=== PATIENT | male | born 1975 | race African-American/Black ===

== ENCOUNTER 2016-04-26 00:41 | Emergency (ER) | payer OTHER ==
[~2016-04-26 00:41] MED LIST: LEVEMIR SQ; LIPI80TA PO; LISI-515 PO; NOVOLOGSS SQ
[2016-04-26 02:00] VITALS: BP 149/92; PULSE 114; RESP 19; TEMP 97.1; O2SAT 95
[2016-04-26 03:20] LABS: AMPHETAMINE, URINE NEG (NEG); BARBITURATES, URINE NEG (NEG); COCAINE, URINE NEG (NEG)
[2016-04-26 03:21] LABS: BASOPHIL # 0.1 TH/MM3 (0-0.2); EOSINOPHIL % 0.2 % (0.0-4.0); HEMATOCRIT 40.5 % (39.0-51.0); HEMO FLAGS DIFF FINAL; LYMPH % 27.8 % (9.0-44.0); LYMPHOCYTE # 2.2 TH/MM3 (1.0-4.8); MEAN CORPUSCULAR HEMOGLOBIN 27.7 PG (27.0-34.0); MEAN CORPUSCULAR HGB CONC 32.6 % (32.0-36.0); MONO % 6.7 % (0.0-8.0); NEUT % 64.3 % (16.0-70.0); PLATELET COUNT 408 TH/MM3 (150-450); RED BLOOD COUNT 4.76 MIL/MM3 (4.50-5.90); RED CELL DISTRIBUTION WIDTH 14.7 % (11.6-17.2); WHITE BLOOD COUNT 7.8 TH/MM3 (4.0-11.0)
[2016-04-26 03:30] LABS: ALKALINE PHOSPHATASE 96 U/L (45-117); TOTAL BILIRUBIN ADULT 0.5 MG/DL (0.2-1.0)
[2016-04-26 03:34] LABS: ALT (GPT) 38 U/L (12-78); ANION GAP 10 MEQ/L (5-15); AST (GOT) 39 U/L (15-37); BICARBONATE 23.3 MEQ/L (21.0-32.0); BLOOD UREA NITROGEN 11 MG/DL (7-18); CHLORIDE 106 MEQ/L (98-107); SODIUM (NA) 139 MEQ/L (136-145)
[2016-04-26 03:35] LABS: GLOMERULAR FILTRATION RATE 62 ML/MIN (>89)
[2016-04-26 03:36] LABS: POTASSIUM 4.6 MEQ/L (3.5-5.1)
--- NOTE | 2016-04-26 03:59 | PD ---
HPI Chief Complaint: Psychiatric Symptoms Time Seen by Provider: 03:56 Travel History International Travel<30 days: No Contact w/Intl Traveler<30days: No Traveled to known affect area: No History of Present Illness HPI 40-year-old black male presents to emergency department under Eckert act by PD. The patient had been drinking this evening. He admits suicidal statement. He had stated he was going to walk out in traffic. Patient denies any homicidal ideation. No toxic ingestion. The patient now after being here in the emergency department for several hours state that he did not truly mean those statements. He states that it was only because he had been drinking alcohol. He has no intention on hurting himself or hurting anyone. PFSH Past Medical History Blood Disorders: No Anxiety: Yes Depression: Yes Cancer: No Diabetes: No Diminished Hearing: No GERD: Yes Glaucoma: No Genitourinary: No Hypertension: Yes Immune Disorder: No Implanted Vascular Access Dvce: No Musculoskeletal: No Neurologic: No Psychiatric: Yes Reproductive: No Respiratory: No Immunizations Current: Yes Sleep Apnea: Yes Thyroid Disease: No Tetanus Vaccination: < 5 Years Past Surgical History Surgical History: No Previous Surgery Other Surgery: No Social History Alcohol Use: Yes Tobacco Use: Yes Substance Use: No Allergies-Medications (Allergen,Severity, Reaction): Coded Allergies: No Known Allergies (Verified , 03/23/16) Reported Meds & Prescriptions Reported Meds & Active Scripts Active Novolog Inj (Insulin Aspart) 100 Unit/Ml Inj 1 Units SQ ACHS SLIDING SCALE 30 Days Sliding Scale As Directed. Levemir Inj (Insulin Detemir) 1,000 unit/ 10 ML Vial 10 Units SQ BID 30 Days Lipitor (Atorvastatin Calcium) 80 Mg Tab 80 Mg PO HS Lisinopril 20 Mg Tab 20 Mg PO DAILY Review of Systems Except as stated in HPI: all other systems reviewed are Neg Psychiatric: No: Anxiety, Depression, Suicidal Ideations, Disorder of Thought, Mood Disorder, Substance Abuse, Homicidal Ideation Physical Exam Narrative GENERAL: Well-nourished, well-developed patient. SKIN: Warm and dry. HEAD: Normocephalic and atraumatic. EYES: No scleral icterus. No injection or drainage. ENT: No nasal drainage noted. Mucous membranes pink. Airway patent. NECK: Supple, trachea midline. Moves head freely without obvious discomfort. CARDIOVASCULAR: Regular rate and rhythm without murmurs, gallops, or rubs. RESPIRATORY: Breath sounds equal bilaterally. No accessory muscle use. GASTROINTESTINAL: Abdomen soft, non-tender, nondistended. EXTREMITIES: No cyanosis or edema. BACK: Nontender without obvious deformity. No CVA tenderness. NEURO: Patient is alert and oriented. no sensorimotor deficits. Nonfocal. Normal speech. PSYCH: No delusions. No auditory or visual hallucinations. Data Data Last Documented VS Vital Signs Date Time Temp Pulse Resp B/P Pulse Ox O2 Delivery O2 Flow Rate FiO2 04/26/16 02:00 97.1 114 19 149/92 95 Room Air Orders Complete Blood Count With Diff (04/26/16 02:26) Comprehensive Metabolic Panel (04/26/16 02:26) Drug Screen, Random Urine (04/26/16 02:26) Alcohol (Ethanol) (04/26/16 02:26) Psych Screen (04/26/16 02:26) Diet Regular Basic (04/26/16 Breakfast) Labs Laboratory Tests Test 04/26/16 03:00 White Blood Count 7.8 TH/MM3 Red Blood Count 4.76 MIL/MM3 Hemoglobin 13.2 GM/DL Hematocrit 40.5 % Mean Corpuscular Volume 85.0 FL Mean Corpuscular Hemoglobin 27.7 PG Mean Corpuscular Hemoglobin 32.6 % Concent Red Cell Distribution Width 14.7 % Platelet Count 408 TH/MM3 Mean Platelet Volume 7.0 FL Neutrophils (%) (Auto) 64.3 % Lymphocytes (%) (Auto) 27.8 % Monocytes (%) (Auto) 6.7 % Eosinophils (%) (Auto) 0.2 % Basophils (%) (Auto) 1.0 % Neutrophils # (Auto) 5.0 TH/MM3 Lymphocytes # (Auto) 2.2 TH/MM3 Monocytes # (Auto) 0.5 TH/MM3 Eosinophils # (Auto) 0.0 TH/MM3 Basophils # (Auto) 0.1 TH/MM3 CBC Comment DIFF FINAL Differential Comment Sodium Level 139 MEQ/L Potassium Level 4.6 MEQ/L Chloride Level 106 MEQ/L Carbon Dioxide Level 23.3 MEQ/L Anion Gap 10 MEQ/L Blood Urea Nitrogen 11 MG/DL Creatinine 1.52 MG/DL Estimat Glomerular Filtration 62 ML/MIN Rate Random Glucose 208 MG/DL Calcium Level 9.1 MG/DL Total Bilirubin 0.5 MG/DL Aspartate Amino Transf 39 U/L (AST/SGOT) Alanine Aminotransferase 38 U/L (ALT/SGPT) Alkaline Phosphatase 96 U/L Total Protein 7.9 GM/DL Albumin 3.9 GM/DL Urine Opiates Screen NEG Urine Barbiturates Screen NEG Urine Amphetamines Screen NEG Urine Benzodiazepines Screen NEG Urine Cocaine Screen NEG Urine Cannabinoids Screen NEG Ethyl Alcohol Level 148 MG/DL MDM Medical Decision Making Medical Screen Exam Complete: Yes Emergency Medical Condition: Yes Medical Record Reviewed: Yes Differential Diagnosis MDM: High Differential diagnoses: Schizophrenia, schizoaffective disorder, bipolar, anxiety, depression, adjustment reaction, mood disorder NOS, ODD, depressive disorder NOS, dementia, dementia with agitation, psychosis NOS, substance induced mood disorder, intermittent explosive disorder, Asperger syndrome, infection,electrolyte abnormality, malingering. Narrative Course Mental health screening discussed with the patient. Psychiatric screen ordered. The patient has been seen by the psych screener. I have also evaluated the patient. He is not suicidal or homicidal. He has verbally contracted for safety. The psych screener also agrees that the patient is safe to go home. The patient's Eckert act will be lifted and he will be sent home. He is not suicidal or homicidal. This is an alcohol induced mood disorder Diagnosis Primary Impression: Alcohol-induced mood disorder Patient Instructions: General Instructions Additional Instructions: Rest. Sleep. Follow-up with the recommendations of the psych screener. Return to the emergency department anytime is symptoms return or worsen. Follow-up with a medical doctor as needed. Med/Other Pt SpecificInfo: No Meds Exist/No RX given Disposition: 01 DISCHARGE HOME Condition: Stable Tr [place] Apr 26, 2016 03:59
== END 2016-04-26 04:56 | disposition home or self-care (01) ==
LOC: NEDAMB 00:41 → NEPJ 04:56
DX: F10.94 Alcohol use, unspecified with alcohol-induced mood disorder (principal); F41.8 Other specified anxiety disorders; I10 Essential (primary) hypertension; G47.30 Sleep apnea, unspecified; Z72.0 Tobacco use; Y90.6 Blood alcohol level of 120-199 mg/100 ml
CPT/HCPCS: 80053; 80307; 80320; 85025; 99283

== ENCOUNTER 2017-07-27 20:57 | Inpatient (IN) | payer SELFPAY ==
[~2017-07-27] VITALS: Ht 180.3 cm; Wt 125.0 kg
[2017-07-27 21:11] VITALS: BP 108/55; PULSE 106; RESP 16; TEMP 97.6; O2SAT 98
[2017-07-27 21:28] VITALS: BP 119/60; PULSE 107; RESP 18; O2SAT 96
[2017-07-27 21:31] VITALS: BP_SYST 109; BP_SYST 115; BP_DIAS 54; BP_DIAS 57
[2017-07-27 21:52] LABS: AUTOMATED NEUTROPHIL # 6.6 TH/MM3 (1.8-7.7); BASOPHIL # 0.2 TH/MM3 (0-0.2); BASOPHIL % 1.5 % (0.0-2.0); EOSINOPHIL % 0.4 % (0.0-4.0); HEMATOCRIT 42.2 % (39.0-51.0); LYMPH % 33.5 % (9.0-44.0); LYMPHOCYTE # 3.9 TH/MM3 (1.0-4.8); MEAN CELL VOLUME 82.8 FL (80.0-100.0); MEAN CORPUSCULAR HEMOGLOBIN 27.5 PG (27.0-34.0); MEAN CORPUSCULAR HGB CONC 33.2 % (32.0-36.0); MEAN PLATELET VOLUME 7.1 FL (7.0-11.0); MONO % 7.8 % (0.0-8.0); MONOCYTE # 0.9 TH/MM3 (0-0.9); NEUT % 56.8 % (16.0-70.0); PLATELET COUNT 310 TH/MM3 (150-450); RED BLOOD COUNT 5.09 MIL/MM3 (4.50-5.90); RED CELL DISTRIBUTION WIDTH 14.3 % (11.6-17.2); WHITE BLOOD COUNT 11.6 TH/MM3 (4.0-11.0)
[2017-07-27 22:11] LABS: ALT (GPT) 23 U/L (12-78)
[2017-07-27 22:15] LABS: ALKALINE PHOSPHATASE 95 U/L (45-117); TOTAL BILIRUBIN ADULT 0.4 MG/DL (0.2-1.0); TROPONIN I LESS THAN 0.02 NG/ML (0.02-0.05)
[2017-07-27 22:22] LABS: BILIRUBIN, URINE NEG (NEG); BLOOD, URINE NEG (NEG); GLUCOSE,URINE 300 mg/dL (NEG); KETONE, URINE NEG (NEG); MUCUS URINE FEW /lpf (OCC); NITRITE,URINE NEG (NEG); PH, URINE 5.5 (5.0-8.5); URINE COLOR LIGHT-YELLOW (YELLW/STRAW); URINE LEUKOCYTE ESTERASE NEG (NEG)
[2017-07-27 22:25] LABS: AST (GOT) 26 U/L (15-37); BLOOD UREA NITROGEN 19 MG/DL (7-18); CALCIUM 9.5 MG/DL (8.5-10.1); CHLORIDE 105 MEQ/L (98-107); CREATININE 2.56 MG/DL (0.60-1.30); GLOMERULAR FILTRATION RATE 34 ML/MIN (>89); GLUCOSE,RANDOM 199 MG/DL (74-106); SODIUM (NA) 137 MEQ/L (136-145)
[2017-07-27 23:00] VITALS: BP 97/52; PULSE 94; RESP 16; O2SAT 96
[2017-07-27] MEDS ORDERED: SODIUM CHLOR 0.9% 1000 ML INJ 1,000 ML IV ONE ×2 (23:00)
--- NOTE | 2017-07-27 23:25 | PD ---
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 He was 7 hours into his shift which he does every week when he went inside of the building to get more beer for the bar. Suddenly he said he felt like he hit a hot hot wall of air although he was going into an air conditioned building. He then tried to get into the walk-in cooler to get the beer and he thought the coolness would help his symptoms go away next he knew he was sitting down lying on top of the kegs inside the cooler and the rest of the staff came to find him and he was continuously becoming somnolent almost passing out denies having fallen and hitting his head he denies head pain he denies any long bone pain. Past medical history as he has a titanium plate in his knee and his left right forearm from a trauma that he had few years back. Denies diabetes denies hypertension is on no medications. No family history of young cardiac disease except his grandmother of a heart attack at the age of 70.. Patient denies having any chest pain no shortness of breath no head trauma throughout the day and came upon them suddenly very he denies standing for a long period of time in the sun he denies suddenly standing up from a sitting position and having the symptoms he said he had been leaning on the bar talking in a normal way there was no exertion prior to this syncopal event in the ER he feels better as of he feels a global tachycardic and tingling he says. He says sometimes his heart goes fast and he can tell when his fasting right now he says he feels best.. Later during HPI he reports and 2 weeks of right groin pain , girlfriend says she has felt swelling in right groin. other other associated Sx PFSH Past Medical History Blood Disorders: No Anxiety: Yes Depression: Yes Cancer: No Cardiovascular Problems: Yes (HTN) Diabetes: Yes Patient Takes Glucophage: No Diminished Hearing: No GERD: Yes Glaucoma: No Genitourinary: No Hypertension: Yes Immune Disorder: No Implanted Vascular Access Dvce: No Musculoskeletal: No Neurologic: No Psychiatric: Yes Reproductive: No Respiratory: Yes (Sleep Apnea) Immunizations Current: Yes Sleep Apnea: Yes Thyroid Disease: No Tetanus Vaccination: > 5 Years Influenza Vaccination: No Past Surgical History Surgical History: No Previous Surgery Other Surgery: No Social History Alcohol Use: Yes (occaisonally) Tobacco Use: Yes (black and milds) Substance Use: No Allergies-Medications (Allergen,Severity, Reaction): Coded Allergies: No Known Allergies (Verified , 03/23/16) Reported Meds & Prescriptions Reported Meds & Active Scripts Active Novolog Inj (Insulin Aspart) 100 Unit/Ml Inj 1 Units SQ ACHS SLIDING SCALE 30 Days Sliding Scale As Directed. Levemir Inj (Insulin Detemir) 1,000 unit/ 10 ML Vial 10 Units SQ BID 30 Days Lipitor (Atorvastatin Calcium) 80 Mg Tab 80 Mg PO HS Lisinopril 20 Mg Tab 20 Mg PO DAILY Review of Systems Except as stated in HPI: all other systems reviewed are Neg Neurologic: Positive: Syncope Physical Exam Narrative GENERAL: awake alert no signs or sepsis , non toxic appearing SKIN: Warm and dry. HEAD: Atraumatic. Normocephalic. EYES: Pupils equal and round. No scleral icterus. No injection or drainage. ENT: No nasal bleeding or discharge. Mucous membranes pink and moist. NECK: Trachea midline. No JVD. CARDIOVASCULAR: Regular rate and rhythm. RESPIRATORY: No accessory muscle use. Clear to auscultation. Breath sounds equal bilaterally. GASTROINTESTINAL: Abdomen soft, non-tender, nondistended. Hepatic and splenic margins not palpable. no hernia normal external genitalia MUSCULOSKELETAL: Extremities without clubbing, cyanosis, or edema. No obvious deformities. NEUROLOGICAL: Awake and alert. No obvious cranial nerve deficits. Motor grossly within normal limits. Five out of 5 muscle strength in the arms and legs. Normal speech. PSYCHIATRIC: Appropriate mood and affect; insight and judgment normal. Data Data Last Documented VS Vital Signs Date Time Temp Pulse Resp B/P (MAP) Pulse Ox O2 Delivery O2 Flow Rate FiO2 07/28/17 00:00 91 16 96/51 (66) 96 Room Air 07/27/17 21:11 97.6 Orders Orders Electrocardiogram (07/27/17 21:27) Complete Blood Count With Diff (07/27/17 21:27) Comprehensive Metabolic Panel (07/27/17 21:27) Iv Access Insert/Monitor (07/27/17 21:27) Troponin I (07/27/17 21:27) Urinalysis - C+S If Indicated (07/27/17 21:35) Drug Screen, Random Urine (07/27/17 21:44) Creatine Kinase (Cpk) (07/27/17 22:31) Ckmb (Isoenzyme) Profile (07/27/17 22:31) Sodium Chlor 0.9% 1000 Ml Inj (Ns 1000 M (07/27/17 23:00) Sodium Chlor 0.9% 1000 Ml Inj (Ns 1000 M (07/27/17 23:00) CKMB (07/27/17 21:30) CKMB% (07/27/17 21:30) Comprehensive Metabolic Panel (07/28/17 01:08) Admit Order (Ed Use Only) (07/28/17 02:56) Labs Laboratory Tests Test 07/27/17 21:30 07/27/17 21:40 07/28/17 01:10 White Blood Count 11.6 TH/MM3 Red Blood Count 5.09 MIL/MM3 Hemoglobin 14.0 GM/DL Hematocrit 42.2 % Mean Corpuscular Volume 82.8 FL Mean Corpuscular Hemoglobin 27.5 PG Mean Corpuscular Hemoglobin Concent 33.2 % Red Cell Distribution Width 14.3 % Platelet Count 310 TH/MM3 Mean Platelet Volume 7.1 FL Neutrophils (%) (Auto) 56.8 % Lymphocytes (%) (Auto) 33.5 % Monocytes (%) (Auto) 7.8 % Eosinophils (%) (Auto) 0.4 % Basophils (%) (Auto) 1.5 % Neutrophils # (Auto) 6.6 TH/MM3 Lymphocytes # (Auto) 3.9 TH/MM3 Monocytes # (Auto) 0.9 TH/MM3 Eosinophils # (Auto) 0.0 TH/MM3 Basophils # (Auto) 0.2 TH/MM3 CBC Comment DIFF FINAL Differential Comment Blood Urea Nitrogen 19 MG/DL 20 MG/DL Creatinine 2.56 MG/DL 2.58 MG/DL Random Glucose 199 MG/DL 209 MG/DL Total Protein 8.0 GM/DL 6.7 GM/DL Albumin 4.0 GM/DL 3.5 GM/DL Calcium Level 9.5 MG/DL 8.5 MG/DL Alkaline Phosphatase 95 U/L 74 U/L Aspartate Amino Transf (AST/SGOT) 26 U/L 20 U/L Alanine Aminotransferase (ALT/SGPT) 23 U/L 21 U/L Total Bilirubin 0.4 MG/DL 0.2 MG/DL Sodium Level 137 MEQ/L 142 MEQ/L Potassium Level 3.9 MEQ/L 4.1 MEQ/L Chloride Level 105 MEQ/L 106 MEQ/L Carbon Dioxide Level 23.0 MEQ/L 26.9 MEQ/L Anion Gap 9 MEQ/L 9 MEQ/L Estimat Glomerular Filtration Rate 34 ML/MIN 33 ML/MIN Total Creatine Kinase 303 U/L Creatine Kinase MB 2.6 NG/ML Troponin I LESS THAN 0.02 NG/ML Urine Color LIGHT-YELLOW Urine Turbidity CLEAR Urine pH 5.5 Urine Specific [place] 1.020 Urine Protein NEG mg/dL Urine Glucose (UA) 300 mg/dL Urine Ketones NEG mg/dL Urine Occult Blood NEG Urine Nitrite NEG Urine Bilirubin NEG Urine Urobilinogen LESS THAN 2.0 MG/DL Urine Leukocyte Esterase NEG Urine RBC 1 /hpf Urine WBC 1 /hpf Urine Mucus FEW /lpf Microscopic Urinalysis Comment CULT NOT INDICATED Urine Opiates Screen NEG Urine Barbiturates Screen NEG Urine Amphetamines Screen NEG Urine Benzodiazepines Screen NEG Urine Cocaine Screen NEG Urine Cannabinoids Screen NEG MDM Medical Decision Making Medical Screen Exam Complete: Yes Emergency Medical Condition: Yes Medical Record Reviewed: Yes Differential Diagnosis pt has possible syncope from dehydration syncope from hypoglycemia syncope from cardiogenic syncope from neurological possible other causes of vasovagal syncope. Narrative Course creatinine is elevated and after 2 liters of NS still elevated 2.5 creatinine and I want to admit for nephrology to consult for close renal management of possible chronic renal insufficiency not seem on prior labs. admit med/surg Diagnosis Primary Impression: Hypertension Qualified Codes: I10 - Essential (primary) hypertension Additional Impression: Acute renal failure Admitting Information Admitting Physician Requests: Observation Gunnar Hess MD Jul 27, 2017 23:25
[2017-07-28] VITALS (8 sets, daily range): BP systolic 96–136; BP diastolic 51–85; PULSE 86–104; RESP 16–20; TEMP 98–98.5; O2SAT 93–99
[2017-07-28 01:58] LABS: ALBUMIN 3.5 GM/DL (3.4-5.0); ALKALINE PHOSPHATASE 74 U/L (45-117); ALT (GPT) 21 U/L (12-78); AST (GOT) 20 U/L (15-37); BICARBONATE 26.9 MEQ/L (21.0-32.0); BLOOD UREA NITROGEN 20 MG/DL (7-18); CALCIUM 8.5 MG/DL (8.5-10.1); CHLORIDE 106 MEQ/L (98-107); CREATININE 2.58 MG/DL (0.60-1.30); GLOMERULAR FILTRATION RATE 33 ML/MIN (>89); GLUCOSE,RANDOM 209 MG/DL (74-106); SODIUM (NA) 142 MEQ/L (136-145); TOTAL BILIRUBIN ADULT 0.2 MG/DL (0.2-1.0); TOTAL PROTEIN 6.7 GM/DL (6.4-8.2)
[2017-07-28] MEDS ORDERED: ONDANSETRON HCL 4 MG/2 ML VIAL IVP PRN (03:00)
[2017-07-28] MEDS ORDERED: SODIUM CHLORIDE 0.9% FLUSH 10 ML FLUSH IV FLUSH PRN (03:00)
[2017-07-28] MEDS ORDERED: NALOXONE HCL 0.4 MG/ML AMP IV PUSH PRN (03:00)
[2017-07-28] MEDS ORDERED: ACETAMINOPHEN 325 MG TAB PO PRN (03:00)
[2017-07-28] MEDS ORDERED: GLUCAGON 1 MG/ML VIAL OTHER PRN (03:15)
[2017-07-28] MEDS ORDERED: DEXTROSE 50% IN WATER 50 ML VIAL(D50) IV PUSH PRN (03:15)
--- NOTE | 2017-07-28 05:05 | HHI.HP ---
HPI Service [facility] Primary Care Physician No Primary Care Physician Admission Diagnosis RENAL INSUFFICIENY new onset Diagnoses: Travel History International Travel<30 Days: No Contact w/Intl Traveler <30 Da: No Traveled to Known Affected Are: No History of Present Illness 41-year-old male with past medical history significant for hypertension, diabetes and hyperlipidemia presents the emergency department for evaluation of a syncopal event. 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 He went into the cooler at work and reports that he passed out. There were no witnesses. He denies any loss of bowel or bladder. He reports when he woke up he was on the floor of the cooler with a water bottle in his hand. Patient denies any chest pain or shortness of breath. No nausea/vomiting/diarrhea/abdominal pain. No lateralizing signs/symptoms. No fatigue or weakness. All symptoms have now resolved. Patient was found to have acute on chronic renal insufficiency that was resistant to hydration in the emergency department. Review of Systems Except as stated in HPI: all other systems reviewed are Neg Past Family Social History Past Medical History Hypertension Diabetes mellitus Hyperlipidemia Past Surgical History Right forearm surgery Left lower extremity surgery Reported Medications Reported Meds & Active Scripts Active Novolog Inj (Insulin Aspart) 100 Unit/Ml Inj 1 Units SQ ACHS SLIDING SCALE 30 Days Sliding Scale As Directed. Levemir Inj (Insulin Detemir) 1,000 unit/ 10 ML Vial 10 Units SQ BID 30 Days Lipitor (Atorvastatin Calcium) 80 Mg Tab 80 Mg PO HS Lisinopril 20 Mg Tab 20 Mg PO DAILY Allergies: Coded Allergies: No Known Allergies (Verified , 03/23/16) Family History Negative for DM/CAD Social History Smokes cigars daily. Occasional alcohol. Denies illicit drugs. Physical Exam Vital Signs Vital Signs Date Time Temp Pulse Resp B/P (MAP) Pulse Ox O2 Delivery O2 Flow Rate FiO2 07/28/17 04:54 98.0 86 18 120/70 (87) 97 07/28/17 04:45 07/28/17 04:00 87 16 118/59 (78) 96 Room Air 07/28/17 03:00 104 16 108/64 (79) 97 Room Air 07/28/17 00:00 91 16 96/51 (66) 96 Room Air 07/27/17 23:00 94 16 97/52 (67) 96 Room Air 07/27/17 21:31 97 115/57 (76) 110 114 109/54 (72) 07/27/17 21:28 107 18 119/60 (79) 96 Room Air 07/27/17 21:11 97.6 106 16 108/55 (72) 98 Physical Exam GENERAL: -[place] male lying in bed SKIN: No rashes, ecchymoses or lesions. Cool and dry. HEAD: Atraumatic. Normocephalic. No temporal or scalp tenderness. EYES: Pupils equal round and reactive. Extraocular motions intact. No scleral icterus. No injection or drainage. ENT: Nose without bleeding, purulent drainage or septal hematoma. Throat without erythema, tonsillar hypertrophy or exudate. Uvula midline. Airway patent. NECK: Trachea midline. No JVD or lymphadenopathy. Supple, nontender, no meningeal signs. CARDIOVASCULAR: Regular rate and rhythm without murmurs, gallops, or rubs. RESPIRATORY: Clear to auscultation. Breath sounds equal bilaterally. No wheezes , rales, or rhonchi. GASTROINTESTINAL: Abdomen soft, non-tender, nondistended. No hepato-splenomegaly , or palpable masses. No guarding. MUSCULOSKELETAL: Extremities without clubbing, cyanosis, or edema. No joint tenderness, effusion, or edema noted. No calf tenderness. NEUROLOGICAL: Awake and alert. Cranial nerves II through XII intact. Motor and sensory grossly within normal limits. Normal speech. Laboratory Laboratory Tests Test 07/27/17 21:30 07/27/17 21:40 07/28/17 01:10 White Blood Count 11.6 Red Blood Count 5.09 Hemoglobin 14.0 Hematocrit 42.2 Mean Corpuscular Volume 82.8 Mean Corpuscular Hemoglobin 27.5 Mean Corpuscular Hemoglobin Concent 33.2 Red Cell Distribution Width 14.3 Platelet Count 310 Mean Platelet Volume 7.1 Neutrophils (%) (Auto) 56.8 Lymphocytes (%) (Auto) 33.5 Monocytes (%) (Auto) 7.8 Eosinophils (%) (Auto) 0.4 Basophils (%) (Auto) 1.5 Neutrophils # (Auto) 6.6 Lymphocytes # (Auto) 3.9 Monocytes # (Auto) 0.9 Eosinophils # (Auto) 0.0 Basophils # (Auto) 0.2 CBC Comment DIFF FINAL Differential Comment Blood Urea Nitrogen 19 20 Creatinine 2.56 2.58 Random Glucose 199 209 Total Protein 8.0 6.7 Albumin 4.0 3.5 Calcium Level 9.5 8.5 Alkaline Phosphatase 95 74 Aspartate Amino Transf (AST/SGOT) 26 20 Alanine Aminotransferase (ALT/SGPT) 23 21 Total Bilirubin 0.4 0.2 Sodium Level 137 142 Potassium Level 3.9 4.1 Chloride Level 105 106 Carbon Dioxide Level 23.0 26.9 Anion Gap 9 9 Estimat Glomerular Filtration Rate 34 33 Total Creatine Kinase 303 Creatine Kinase MB 2.6 Troponin I LESS THAN 0.02 Urine Color LIGHT-YELLOW Urine Turbidity CLEAR Urine pH 5.5 Urine Specific [place] 1.020 Urine Protein NEG Urine Glucose (UA) 300 Urine Ketones NEG Urine Occult Blood NEG Urine Nitrite NEG Urine Bilirubin NEG Urine Urobilinogen LESS THAN 2.0 Urine Leukocyte Esterase NEG Urine RBC 1 Urine WBC 1 Urine Mucus FEW Microscopic Urinalysis Comment CULT NOT INDICATED Urine Opiates Screen NEG Urine Barbiturates Screen NEG Urine Amphetamines Screen NEG Urine Benzodiazepines Screen NEG Urine Cocaine Screen NEG Urine Cannabinoids Screen NEG Result Diagram: 07/27/17212907/28/17 0110 Caprini VTE Risk Assessment Caprini VTE Risk Assessment: No/Low Risk (score <= 1) Caprini Risk Assessment Model Point Value = 1 Point Value = 2 Point Value = 3 Point Value = 5 Age 41-60 Minor surgery BMI > 25 kg/m2 Swollen legs Varicose veins or History of unexplained or recurrent spontaneous Oral contraceptives or hormone replacement Sepsis (< 1 month) Serious lung disease, including pneumonia (< 1 month) Abnormal pulmonary function Acute myocardial infarction Congestive heart failure (< 1 month) History of inflammatory bowel disease Medical patient at bed rest Age 61-74 Arthroscopic surgery Major open surgery (> 45 min) Laparoscopic surgery (> 45 min) Malignancy Confined to bed (> 72 hours) Immobilizing plaster cast Central venous access Age >= 75 History of VTE Family history of VTE Factor V Leiden Prothrombin [id number] Lupus anticoagulant Anticardiolipin antibodies Elevated serum homocysteine Heparin-induced thrombocytopenia Other congenital or acquired thrombophilia Stroke (< 1 month) Elective arthroplasty Hip, pelvis, or leg fracture Acute spinal cord injury (< 1 month) Prophylaxis Regimen Total Risk Factor Score Risk Level Prophylaxis Regimen 0-1 Low Early ambulation 2 Moderate Order ONE of the following: *Sequential Compression Device (SCD) *Heparin 5000 units SQ BID 3-4 Higher Order ONE of the following medications: *Heparin 5000 units SQ TID *Enoxaparin/Lovenox 40 mg SQ daily (WT < 150 kg, CrCl > 30 mL/min) *Enoxaparin/Lovenox 30 mg SQ daily (WT < 150 kg, CrCl > 10-29 mL/min) *Enoxaparin/Lovenox 30 mg SQ BID (WT < 150 kg, CrCl > 30 mL/min) AND/OR *Sequential Compression Device (SCD) 5 or more Highest Order ONE of the following medications: *Heparin 5000 units SQ TID (Preferred with Epidurals) *Enoxaparin/Lovenox 40 mg SQ daily (WT < 150 kg, CrCl > 30 mL/min) *Enoxaparin/Lovenox 30 mg SQ daily (WT < 150 kg, CrCl > 10-29 mL/min) *Enoxaparin/Lovenox 30 mg SQ BID (WT < 150 kg, CrCl > 30 mL/min) AND *Sequential Compression Device (SCD) Assessment and Plan Assessment and Plan Assessment/plan: 1. Acute on chronic renal insufficiency Creatinine 2.58, baseline 1.5 from 1 year ago IV fluid hydration Renal ultrasound pending Nephrology consulted, appreciate recommendations 2. Diabetes mellitus Continue home Levemir Monitor blood glucose Sliding-scale insulin 3. Hypertension/hyperlipidemia Continue home medications FEN: Renal diet Electrolytes: monitor and replete prn NS at 125 cc/hr Physician Certification 2 Midnight Certification Type: Admission for Inpatient Services Order for Inpatient Services The services are ordered in accordance with Medicare regulations or non- Medicare payer requirements, as applicable. In the case of services not specified as inpatient-only, they are appropriately provided as inpatient services in accordance with the 2-midnight benchmark. Estimated LOS (days): 2 2 days is the estimated time the patient will need to remain in the hospital, assuming treatment plan goals are met and no additional complications. Post-Hospital Plan: Not yet determined Liane aMrtino MD Jul 28, 2017 05:05
[2017-07-28] MEDS: SODIUM CHLOR 0.9% 1000 ML INJ 1,000 ML IV SCH ×3 (05:06→21:49)
[2017-07-28] MEDS: INSULIN ASPART SUPPLEMENTAL SCALE SQ SCH ×4 (08:00→21:50)
--- NOTE | 2017-07-28 08:56 | RADRPT ---
EXAM DATE/TIME: 07/28/2017 08:12 [facility] COMPARISON: No previous studies available for comparison. INDICATIONS : Increased BUN/Creatnine. MEDICAL HISTORY : Hypertension. Gastroesophageal reflux disease. Sleep apnea. Diabetes. Depression. Anxiety. SURGICAL HISTORY : Abhijit in right arm. Hardware in left callaway. ENCOUNTER: Initial ACUITY: 1 day PAIN SCORE: 0/10 LOCATION: Bilateral flank MEASUREMENTS: RIGHT KIDNEY: 10.3 x 4.7 x 5.0 cm LEFT KIDNEY: 11.1 x 4.8 x 6.4 cm FINDINGS: RIGHT KIDNEY: Renal cortex is normal in thickness and echotexture. No hydronephrosis, stone, or mass. LEFT KIDNEY: Renal cortex is normal in thickness and echotexture. No hydronephrosis, stone, or mass. BLADDER: Within normal limits given the degree of distension. CONCLUSION: Normal examination. Marcellus Childers MD on July 28, 2017 at 8:53 Board Certified Radiologist. This report was verified electronically.
[2017-07-28] MEDS: INSULIN DETEMIR 100 UNITS/ML VIAL SQ SCH ×2 (09:00→21:49)
[2017-07-28] MEDS: SODIUM CHLORIDE 0.9% FLUSH 10 ML FLUSH IV FLUSH SCH ×2 (09:00→21:49)
[2017-07-28] MEDS: LISINOPRIL 20 MG TAB PO SCH (09:55)
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
[2017-07-28 12:10] LABS: BICARBONATE 25.1 MEQ/L (21.0-32.0); CALCIUM 8.9 MG/DL (8.5-10.1); CREATININE 1.74 MG/DL (0.60-1.30)
--- NOTE | 2017-07-28 13:41 | EKG ---
Date Performed: 07/27/2017 Time Performed: 21:31:01 PTAGE: 41 years EKG: SINUS TACHYCARDIA MARKED LEFT AXIS DEVIATION PATTERN CONSISTENT WITH PULMONARY DISEASE ABNO RMAL ECG PREVIOUS TRACING 03/23/16 Since the previous tracing, no significant change noted DOCTOR: Jarred Stover Interpretating Date/Time 07/28/2017 13:41:08
--- NOTE | 2017-07-28 16:17 | HHI.PR ---
Addendum to Inpatient Note Addendum Reason: Additional Documentation Additional Information The pt was resting comfortably. He was seen by nephrology who indicated acute renal failure was s/t dehydration. Renal US unremarkable. Continue IVFs. Follow up with nephrology. Follow BMP and avoid nephrotoxins. Román Leo DO Jul 28, 2017 16:17
[2017-07-28] MEDS ORDERED: ATORVASTATIN 80 MG TAB PO SCH (21:00)
[2017-07-29 00:04] VITALS: BP 141/75; PULSE 81; RESP 18; TEMP 98.2; O2SAT 98
[2017-07-29] MEDS: SODIUM CHLOR 0.9% 1000 ML INJ 1,000 ML IV SCH ×2 (03:23→11:23)
[2017-07-29 06:16] LABS: AUTOMATED NEUTROPHIL # 2.7 TH/MM3 (1.8-7.7); BASOPHIL % 0.3 % (0.0-2.0); EOSINOPHIL # 0.1 TH/MM3 (0-0.4); LYMPH % 51.4 % (9.0-44.0); LYMPHOCYTE # 3.5 TH/MM3 (1.0-4.8); MEAN CELL VOLUME 82.8 FL (80.0-100.0); MEAN CORPUSCULAR HEMOGLOBIN 27.6 PG (27.0-34.0); MEAN CORPUSCULAR HGB CONC 33.4 % (32.0-36.0); MEAN PLATELET VOLUME 7.3 FL (7.0-11.0); MONO % 7.3 % (0.0-8.0); MONOCYTE # 0.5 TH/MM3 (0-0.9); PLATELET COUNT 265 TH/MM3 (150-450); RED BLOOD COUNT 4.34 MIL/MM3 (4.50-5.90); RED CELL DISTRIBUTION WIDTH 14.6 % (11.6-17.2); WHITE BLOOD COUNT 6.8 TH/MM3 (4.0-11.0)
[2017-07-29 06:38] LABS: BICARBONATE 26.1 MEQ/L (21.0-32.0); CALCIUM 8.8 MG/DL (8.5-10.1); CREATININE 1.35 MG/DL (0.60-1.30)
[2017-07-29 07:31] VITALS: BP 129/70; PULSE 64; RESP 17; TEMP 97.4; O2SAT 97
[2017-07-29] MEDS: INSULIN ASPART SUPPLEMENTAL SCALE SQ SCH ×2 (08:00→12:00)
[2017-07-29] MEDS: SODIUM CHLORIDE 0.9% FLUSH 10 ML FLUSH IV FLUSH SCH (09:00)
[2017-07-29] MEDS: INSULIN DETEMIR 100 UNITS/ML VIAL SQ SCH (09:00)
[2017-07-29] MEDS: LISINOPRIL 20 MG TAB PO SCH (10:20)
[2017-07-29] MEDS ORDERED: LISI-515 PO (11:12)
[2017-07-29] MEDS ORDERED: ATOR80TA45 PO (11:12)
[2017-07-29] MEDS ORDERED: LEVEMIR SQ (11:12)
[2017-07-29] MEDS ORDERED: [UNRECOGNIZED DRUG - CODE] (11:14)
[2017-07-29] MEDS ORDERED: GLUCKIT15 (11:14)
[2017-07-29] MEDS ORDERED: GLUCTES12 (11:14)
[2017-07-29] MEDS ORDERED: INSU31MI31 (11:14)
--- NOTE | 2017-07-29 11:20 | HHI.PR ---
Subjective Remarks Follow-up acute on chronic kidney disease/diabetes type 2 July 29, 2017-patient seen and examined; renal indices improving. Patient denies any syncopal episode. Blood glucose better controlled. Tolerated p.o. without any competition nausea and vomiting. Looking for discharge home. Objective Vitals Vital Signs Date Time Temp Pulse Resp B/P (MAP) Pulse Ox O2 Delivery O2 Flow Rate FiO2 07/29/17 07:31 97.4 64 17 129/70 (89) 97 07/29/17 00:04 98.2 81 18 141/75 (97) 98 07/28/17 20:00 98.1 87 17 136/84 (101) 98 07/28/17 16:00 98.5 96 20 113/63 (80) 99 07/28/17 13:30 98.1 90 20 132/84 (100) 99 I/O 07/28/17 07/28/17 07/28/17 07/29/17 07/29/17 07/29/17 07:00 15:00 23:00 07:00 15:00 23:00 Intake Total 2000 ml 720 ml 520 ml Balance 2000 ml 720 ml 520 ml Intake Oral 720 ml 520 ml IV Total 2000 ml # Voids 2 5 # Bowel Movements 0 Result Diagram: 07/29/17 0454 07/29/17 0454 Imaging Last Impressions Renal Ultrasound 07/28/17 0000 Signed Impressions: Service Date/Time: Friday, July 28, 2017 08:12 - CONCLUSION: Normal examination. Marcellus Childers MD Objective Remarks GENERAL: NAD SKIN: Warm and dry. HEAD: Normocephalic. EYES: No scleral icterus. No injection or drainage. NECK: Supple, trachea midline. No JVD or lymphadenopathy. CARDIOVASCULAR: Regular rate and rhythm without murmurs, gallops, or rubs. RESPIRATORY: Breath sounds equal bilaterally. No accessory muscle use. GASTROINTESTINAL: Abdomen soft, non-tender, nondistended. MUSCULOSKELETAL: No cyanosis, or edema. BACK: Nontender without obvious deformity. No CVA tenderness. A/P Problem List: (1) Acute renal failure ICD Code: N17.9 - Acute kidney failure, unspecified (2) Diabetes mellitus ICD Code: E11.9 - Type 2 diabetes mellitus without complications (3) Hypertension ICD Code: I10 - Essential (primary) hypertension Assessment and Plan 41-year-old man with 1. Acute on chronic renal insufficiency secondary to dehydration Improved with IV fluid hydration Renal ultrasound without any abnormality Nephrology consulted, appreciate recommendations 2. Diabetes mellitus Blood glucose improving Continue home Levemir Monitor blood glucose Sliding-scale insulin 3. Hypertension/hyperlipidemia Continue home medications Discharge Planning Discharge patient to home Condition on discharge: Improved [place] Diet as tolerated Ad Shandra activity Rx written:see EMR Follow-up with primary care physician in 1 week Follow with nephrology as needed Problem Qualifiers (1) Acute renal failure: Qualified Codes: N17.9 - Acute kidney failure, unspecified (2) Diabetes mellitus: Qualified Codes: E11.9 - Type 2 diabetes mellitus without complications (3) Hypertension: Qualified Codes: I10 - Essential (primary) hypertension Juan Anguiano MD Jul 29, 2017 11:20
[2017-07-29 12:00] VITALS: BP 137/78; PULSE 82; RESP 18; TEMP 97.8; O2SAT 98
== END 2017-07-29 12:35 | disposition home or self-care (01) | DRG 684 ==
LOC: NEPE 20:57 → NEDA 07-28 02:57 → OBSVTOIN 07-28 03:45 → NEPGCP 07-28 05:27 → N06B 07-28 12:59
PROVIDERS: ADMIT Hospitalist; ATTEND Hospitalist
DX: N17.9 Acute kidney failure, unspecified (principal); E11.22 Type 2 diabetes mellitus with diabetic chronic kidney disease; R55 Syncope and collapse; I12.9 Hypertensive chronic kidney disease with stage 1 through stage 4 chronic kidney disease, or unspecified chronic kidney disease; N18.9 Chronic kidney disease, unspecified; F17.290 Nicotine dependence, other tobacco product, uncomplicated; Z82.49 Family history of ischemic heart disease and other diseases of the circulatory system; E78.5 Hyperlipidemia, unspecified; Z79.4 Long term (current) use of insulin; E86.0 Dehydration; E11.65 Type 2 diabetes mellitus with hyperglycemia; K21.9 Gastro-esophageal reflux disease without esophagitis; G47.30 Sleep apnea, unspecified
CPT/HCPCS: 76775; 80048; 80053; 80307; 81001; 82550; 82552; 82948; 84484; 85025; 93005; 96360; G8987-GP; G8988-GP; J1815; J7030

== ENCOUNTER 2017-09-15 14:53 | Emergency (ER) | payer SELFPAY ==
[~2017-09-15] VITALS: Ht 180.3 cm; Wt 124.0 kg
[~2017-09-15 14:53] MED LIST changes: +ATOR80TA45 PO; +GLUCKIT15; +GLUCTES12; +INSU31MI31; -LIPI80TA PO; +[UNRECOGNIZED DRUG - CODE]
[2017-09-15 14:57] VITALS: BP 155/103; PULSE 112; RESP 18; TEMP 98.7; O2SAT 99
[2017-09-15] MEDS ORDERED: LEVEMIR SQ (15:07)
[2017-09-15] MEDS ORDERED: NOVONP2 SQ (15:07)
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
--- NOTE | 2017-09-15 15:47 | RADRPT ---
EXAM DATE: 09/15/2017 3:40 PM EDT AGE/SEX: 42 years / Male INDICATIONS: Posterior chest pain post fall today CLINICAL DATA: This is the patient's initial encounter. Patient reports that signs and symptoms have been present for 1 day and indicates a pain score of 5/10. MEDICAL/SURGICAL HISTORY: None. None. COMPARISON: No prior exams available for comparison. FINDINGS: A single AP view of the chest demonstrates the lungs to be symmetrically aerated without evidence of mass, infiltrate or effusion. The cardiomediastinal contours are unremarkable. Degenerative changes are noted throughout the thoracic spine. CONCLUSION: Negative examination. Electronically signed by: Reji Padilla MD 09/15/2017 3:45 PM EDT
--- NOTE | 2017-09-15 15:53 | RADRPT ---
EXAM DATE: 09/15/2017 3:48 PM EDT AGE/SEX: 42 years / Male INDICATIONS: Right posterior elbow pain post fall today CLINICAL DATA: This is the patient's initial encounter. Patient reports that signs and symptoms have been present for 1 day and indicates a pain score of 10/10. MEDICAL/SURGICAL HISTORY: . Prior fractures to right elbow . ORIF right elbow COMPARISON: No prior exams available for comparison. FINDINGS: Extensive degenerative changes are present about the elbow. Fracture is not appreciated. Scattered in tra-articular loose bodies are evident. No joint effusion CONCLUSION: Extensive degenerative changes. I do not see a joint effusion or evidence for an acute fracture. Subt le acute fracture would be difficult to exclude. Electronically signed by: Jose Cagle MD 09/15/2017 3:52 PM EDT
--- NOTE | 2017-09-15 16:28 | RADRPT ---
EXAM DATE: 09/15/2017 4:25 PM EDT AGE/SEX: 42 years / Male INDICATIONS: Trauma; fall. CLINICAL DATA: This is the patient's initial encounter. Patient reports that signs and symptoms have been present for 1 day and indicates a pain score of 4/10. MEDICAL/SURGICAL HISTORY: Cardiovascular disease. Hypertension. None. RADIATION DOSE: 56.35 CTDI (mGy) COMPARISON: [facility] – [place], CT BRAIN W/O CONTRAST, 03/23/2016. . TECHNIQUE: CT of the head without contrast. Using automated exposure control and adjustment of the mA and/or kV according to patient size, radiation dose was kept as low as reasonably achievable to ob tain optimal diagnostic quality images. FINDINGS: Cerebrum: The ventricles are normal for age. No evidence of midline shift, mass lesion, hemorrhage or acute infarction. No extraaxial fluid collections are seen. Posterior Fossa: The cerebellum and brainstem are intact. The 4th ventricle is midline. The cerebe llopontine angle is unremarkable. Extracranial: The visualized portion of the orbits is intact. Skull: The calvaria is intact. No evidence of skull fracture. CONCLUSION: 1. Negative for acute process. Electronically signed by: Jose Cagle MD 09/15/2017 4:27 PM EDT
--- NOTE | 2017-09-15 16:32 | RADRPT ---
EXAM DATE: 09/15/2017 4:27 PM EDT AGE/SEX: 42 years / Male INDICATIONS: Trauma; fall. CLINICAL DATA: This is the patient's initial encounter. Patient reports that signs and symptoms have been present for 1 day and indicates a pain score of 5/10. MEDICAL/SURGICAL HISTORY: Cardiovascular disease. Hypertension. None. RADIATION DOSE: 21.05 CTDI (mGy) COMPARISON: No prior exams available for comparison. TECHNIQUE: Contiguous axial images were obtained using helical multirow detector technique. The vol umetric data was post-processed with multiplanar reconstruction in oblique axial, sagittal, and coron al planes. Using automated exposure control and adjustment of the mA and/or kV according to patient s ize, radiation dose was kept as low as reasonably achievable to obtain optimal diagnostic quality juanito ges. FINDINGS: Vertebrae: Normal vertebral body height. Anterior osteophyte findings are seen at C5-C6 and C6-C7. Alignment: Normal. No subluxation. C2-3: The bony spinal canal is normal in size. No evidence of disc bulge or herniation. The neural foramina are bilaterally patent. C3-4: The bony spinal canal is normal in size. No evidence of disc bulge or herniation. The neural foramina are bilaterally patent. C4-5: The bony spinal canal is normal in size. No evidence of disc bulge or herniation. The neural foramina are bilaterally patent. C5-6: The bony spinal canal is normal in size. No evidence of disc bulge or herniation. Large ante rior osteophytes are evident The neural foramina are bilaterally patent. C6-7: The bony spinal canal is normal in size. No evidence of disc bulge or herniation. Large ante rior osteophytes are evident. The neural foramina are bilaterally patent. C7-T1: The bony spinal canal is normal in size. No evidence of disc bulge or herniation. The neura l foramina are bilaterally patent. CONCLUSION: 1. Large anterior osteophytes. 2. Controlled flexion-extension films would be of benefit to exclude instability. Electronically signed by: Jose Cagle MD 09/15/2017 4:30 PM EDT
[2017-09-15] MEDS ORDERED: ORPHENADRINE INJ 60 MG/2 ML AMP IM ONE (16:45)
[2017-09-15] MEDS ORDERED: KETOROLAC TROMETHAMINE 60 MG/2 ML (IM) VIAL IM ONE (16:45)
--- NOTE | 2017-09-15 17:17 | RADRPT ---
EXAM DATE: 09/15/2017 5:11 PM EDT AGE/SEX: 42 years / Male INDICATIONS: Neck pain and headache after fall. CLINICAL DATA: This is the patient's initial encounter. Patient reports that signs and symptoms have been present for 1 day and indicates a pain score of 4/10. MEDICAL/SURGICAL HISTORY: None. None. COMPARISON: No prior exams available for comparison. FINDINGS: Very minimal subluxation at C3-C4 felt to be degenerative rather than traumatic. No other abnormal mo tion segments are noted. CONCLUSION: Minimal subluxation at C3-C4 as above. Electronically signed by: Jose Cagle MD 09/15/2017 5:16 PM EDT
[2017-09-15] MEDS ORDERED: ROBA500T PO (17:27)
[2017-09-15 17:30] VITALS: BP 148/83; TEMP 97.8
== END 2017-09-15 17:30 | disposition home or self-care (01) ==
LOC: NEPC 14:53
DX: S16.1XXA Strain of muscle, fascia and tendon at neck level, initial encounter (principal); S50.01XA Contusion of right elbow, initial encounter; S09.90XA Unspecified injury of head, initial encounter; T23.262A Burn of second degree of back of left hand, initial encounter; E11.9 Type 2 diabetes mellitus without complications; E78.00 Pure hypercholesterolemia, unspecified; I10 Essential (primary) hypertension; W10.9XXA Fall (on) (from) unspecified stairs and steps, initial encounter; X12.XXXA Contact with other hot fluids, initial encounter; Z72.0 Tobacco use; Z79.4 Long term (current) use of insulin
CPT/HCPCS: 70450; 71045; 72040; 72125; 73080; 96372; 99284; J1885; J2360

== ENCOUNTER 2018-03-09 17:10 | Observation (INO) ==
[2018-03-09] MEDS ORDERED: Sod Chloride 0.9% Inj 1,000 ML IV.SIG SCH ×2 (20:00→21:45)
--- NOTE | 2018-03-09 20:18 | XR ---
EXAM DATE: 03/09/2018 8:13 PM EST AGE/SEX: 42 years / Male INDICATIONS: Cough. Congestion. CLINICAL DATA: This is the patient's subsequent encounter. Patient reports that signs and symptoms h ave been present for 1 day and indicates a pain score of 5/10. MEDICAL/SURGICAL HISTORY: None. None. COMPARISON: [facility] – [place], CHEST SINGLE AP, 09/15/2017. . FINDINGS: A single AP view of the chest demonstrates the lungs to be symmetrically aerated without evidence of mass, infiltrate or effusion. The cardiomediastinal contours are unremarkable. Osseous structures a re intact. CONCLUSION: No evidence of acute cardiopulmonary disease. Electronically signed by: Emeka Lawton MD 03/09/2018 8:17 PM EST
[2018-03-09 20:24] LABS: Baso # (Auto) 0.1 th/mm3 (0.0-0.2); Baso % (Auto) 0.8 % (0.0-2.0); Eos # (Auto) 0.1 th/mm3 (0.0-0.4); Eos % (Auto) 1.5 % (0.0-4.0); Hematocrit 42.7 % (39.0-51.0); Lymph # (Auto) 3.8 th/mm3 (1.0-4.8); Lymph % (Auto) 39.9 % (9.0-44.0); Mean Corpuscular HGB Conc 32.7 % (32.0-36.0); Mean Corpuscular Hemoglobin 27.5 pg (27.0-34.0); Mean Platelet Volume 8.5 fL (7.0-11.0); Mono # (Auto) 0.6 th/mm3 (0.0-0.9); Mono % (Auto) 6.6 % (0.0-8.0); Neut # (Auto) 4.9 th/mm3 (1.8-7.7); Neut % (Auto) 51.2 % (16.0-70.0); Platelet Count 258 th/mm3 (150-450); Red Blood Count 5.09 mil/mm3 (4.50-5.90); Red Cell Distribution Width 13.7 % (11.6-17.2); White Blood Count 9.6 th/mm3 (4.0-11.0)
--- NOTE | 2018-03-09 20:27 | CT ---
EXAM DATE: 03/09/2018 8:23 PM EST AGE/SEX: 42 years / Male INDICATIONS: Blurred vision 2 weeks CLINICAL DATA: This is the patient's initial encounter. Patient reports that signs and symptoms have been present for 2 weeks and indicates a pain score of 0/10. MEDICAL/SURGICAL HISTORY: Diabetes. Hypertension. None. RADIATION DOSE: 56.45 CTDI (mGy) COMPARISON: [facility] – [place]RAIN [place], 09/15/2017. . TECHNIQUE: CT of the head without contrast. Using automated exposure control and adjustment of the mA and/or kV according to patient size, radiation dose was kept as low as reasonably achievable to ob tain optimal diagnostic quality images. DICOM format image data is available electronically for revi ew and comparison. FINDINGS: Cerebrum: The ventricles are normal for age. No evidence of midline shift, mass lesion, hemorrhage or acute infarction. No extraaxial fluid collections are seen. Posterior Fossa: The cerebellum and brainstem are intact. The 4th ventricle is midline. The cerebe llopontine angle is unremarkable. Extracranial: The visualized portion of the orbits is intact. Skull: The calvaria is intact. No evidence of skull fracture. CONCLUSION: No acute intracranial abnormality. . Electronically signed by: Emeka Lawton MD 03/09/2018 8:26 PM EST
[2018-03-09 20:31] LABS: Bilirubin,Urine Negative (Negative); Clarity,Urine Clear (Clear); Color,Urine Straw (Yellw/Straw); Glucose,Urine (UA) 500 or Greater mg/dL (Negative); Leukocyte Esterase,Urine Negative (Negative); Nitrite,Urine Negative (Negative); Specific Gravity,Urine 1.032 (1.002-1.035)
[2018-03-09 20:52] LABS: Alanine Aminotransferase 38 U/L (12-78); Albumin 4.1 g/dL (3.4-5.0); Alkaline Phosphatase 182 U/L (45-117); Anion Gap 8 meq/L (5-15); Aspartate Aminotransferase 29 U/L (15-37); Beta Hydroxybutyric Acid 0.84 mmol/L (0.00-0.39); Blood Urea Nitrogen 17 mg/dL (7-18); Calcium 8.9 mg/dL (8.5-10.1); Chloride 93 meq/L (98-107); Glomerular Filtration Rate 56 mL/min (>89); Magnesium 2.1 mg/dL (1.5-2.5); Sodium 127 meq/L (136-145); Total Protein 7.8 g/dL (6.4-8.2)
[2018-03-09 20:53] LABS: Potassium 4.4 meq/L (3.5-5.1)
[2018-03-09 20:54] LABS: Glucose,Random 556 mg/dL (74-106)
[2018-03-09 21:04] LABS: VBG Base Excess -0.6 mmol/L (-2-2); VBG Blood Gas Oxygen Content 9.2 Vol % (9.0-17.0); VBG PCO2 45 mmHG (44-48); VBG PH 7.35 (7.360-7.400)
[2018-03-09 21:05] LABS: VBG PO2 28 mmHG (35-40)
--- NOTE | 2018-03-09 21:08 | ED ---
HPI General Chief complaint: Eye Problems Stated complaint: blurry vision Time Seen by Provider: 03/09/18 19:38 Source: patient and family Mode of arrival: ambulatory Limitations: no limitations History of Present Illness HPI narrative: Mr Stevenson is a 42 year old male who presents to the ED for evaluation of blurred vision and fatigue. The patient was diagnosed with DMT2 2 years ago and has been taking lisinopril, atorvastatin, and Novalin. The patient states that for approximately 1 week he has had increasing blurred vision and fatigue. When he has checked his glucose this week, the glucometer has read high. He states he usually only checks his glucose twice per week. The patient also complains of tightness in his chest and stiffness in his arms. He denies fever, nausea, vomiting, abdominal pain, diarrhea, diaphoresis, or SOB. The patient's PMH is significant for DMT2, HTN, sleep apnea, hypercholesterolemia and an irregular heart beat. He smokes 3 black and mild cigars per day, and denies alcohol or drug use. Currently denies any pain. Has not seen his PCP or any other provider for this. No urinary or BM issues. Denies chest pain. Related Data Home Medications Medication Instructions Recorded Confirmed atorvastatin 80 mg PO DAILY 03/09/18 03/09/18 lisinopril 20 mg PO DAILY 03/09/18 03/09/18 Previous Rx's Medication Instructions Recorded insulin asp prt-insulin aspart 12 unit SUBCUT BIDAC #1 vial 03/10/18 [Novolog Mix 70-30 U-100 Insuln] metformin 1,000 mg PO QPM #30 tab 03/10/18 Allergies Allergy/AdvReac Type Severity Reaction Status Date / Time No Known Allergies Allergy Verified 03/09/18 17:19 Review of Systems ROS: all other systems reviewed are negative [facility] Medical History Medical History Diabetes (Acute) Hyperlipidemia (Acute) Hypertension (Acute) Surgical History Surgical History History of orthopedic surgery (Acute) History of surgery on arm (Acute) Social History Social History Substance History: No History of Abuse Second Hand Smoke Exposure: Yes Smoking Status: Light tobacco smoker Tobacco Type: Cigars How Often Do You Have a Drink Containing Alcohol: Never Recent Travel in [facility] within the Last 8 Weeks: No Recent Out of Country Travel within the Last 8 Weeks: No Immunization History Tetanus Immunization: >5 Years Exam Narrative Exam Narrative: GENERAL: Patient is a well developed well nourished male in [facility]. SKIN: Warm and dry. HEAD: Atraumatic. Normocephalic. EYES: Pupils equal and round and reactive to light and accomodation 4 mms reactive to light and acomodation. No scleral icterus. No injection or drainage. Ophthalmic exam attempted but the patient would not keep eyes fixed in one place for exam to occur. EOM intact. ENT: No nasal bleeding or discharge. Mucous membranes pink and moist. Tongue is midline. no uvula deviation. NECK: Trachea midline. No JVD. CARDIOVASCULAR: Regular rate and rhythm. No murmurs rubs or gallops. RESPIRATORY: No accessory muscle use. Clear to auscultation. Breath sounds equal bilaterally. GASTROINTESTINAL: Abdomen soft, non-tender, nondistended. Hepatic and splenic margins not palpable. MUSCULOSKELETAL: Extremities without clubbing, cyanosis, or edema. No obvious deformities. Full ROM in the upper and lower extremities bilaterally. 2+ pulses in the upper and lower extremities bilaterally. NEUROLOGICAL: Awake and alert. No obvious cranial nerve deficits. Motor grossly within normal limits. Five out of 5 muscle strength in the arms and legs. Normal speech. PSYCHIATRIC: Appropriate mood and affect; insight and judgment normal. Course Initial Documented Vital Signs Temperature 98.9 F 03/09/18 17:16 Pulse Rate 91 H 03/09/18 17:16 Respiratory Rate 20 03/09/18 17:16 Blood Pressure 171/79 H 03/09/18 17:16 Pulse Oximetry 98 03/09/18 17:16 Last Documented Vital Signs Temperature 98.4 F 03/10/18 16:00 Pulse Rate 94 H 03/10/18 16:00 Respiratory Rate 16 03/10/18 16:00 Blood Pressure 115/87 03/10/18 16:00 Pulse Oximetry 95 03/10/18 16:00 Medical Decision Making JIN Attestation JIN supervised visit: Yes Attestation: I was present with the advanced practitioner during the management of this patient. I discussed the case with the advanced practitioner and agree with the findings and plan as documented in their note except as noted below. 42yM with very poorly controlled IDDM presenting with blurred vision likely as complication of DM. His glucose was >500 on arrival and continued to be >500 with SQ insulin and aggressive IV hydration. Observation overnight for better glucose control and diabetic education. MDM Narrative Medical decision making narrative: 42 yo male here for evaluation of blurry vision. Unclear etiology of symptoms but appears patient is non compliant with his diabetes. Labs and imaging ordered. Labs and imaging showed hyperglycemia otherwise unremarcable. From history from and patient, it appears patient does not check his BS daily, apparently only twice a week and only gives himself insulin on occasion. He is unsure of what corresponds to a high blood sugar. He working for labs and imaging were done. Labs and imaging that showed elevated high blood sugar. Mild acidemia but no sign of DKA. Patient was given fluids. Given insulin with no improvement. Patient still in the 500s. Case was discussed with my attending Dr. Samano or who recommends admission for further evaluation as patient continues to have elevated blood sugars. Case discussed with Dr. Muhammad agrees with observation. Medical Screen Exam Complete: Yes Emergency Medical Condition: Yes Differential Diagnosis Differential Diagnosis: hyperglycemia vs Diabetes vs non compliant vs blurry vision vs TIA Medical Records Medical records reviewed: Yes I reviewed the patient's medical records. Lab Data Lab results reviewed: Yes I reviewed the patient's lab results. Result diagrams: 03/10/18 09:55 03/10/18 09:55 Lab Results 03/09/18 03/09/18 03/09/18 Range/Units 19:54 20:05 20:05 WBC 9.6 (4.0-11.0) th/mm3 RBC 5.09 (4.50-5.90) mil/mm3 Hgb 14.0 (13.0-17.0) gm/dL Hct 42.7 (39.0-51.0) % MCV 84.0 (80.0-100.0) fL MCH 27.5 (27.0-34.0) pg MCHC 32.7 (32.0-36.0) % RDW 13.7 (11.6-17.2) % Plt Count 258 (150-450) th/mm3 MPV 8.5 (7.0-11.0) fL Neut % (Auto) 51.2 (16.0-70.0) % Lymph % (Auto) 39.9 (9.0-44.0) % [place] % (Auto) 6.6 (0.0-8.0) % Eos % (Auto) 1.5 (0.0-4.0) % Baso % (Auto) 0.8 (0.0-2.0) % Neut # (Auto) 4.9 (1.8-7.7) th/mm3 Lymph # (Auto) 3.8 (1.0-4.8) th/mm3 [place] # (Auto) 0.6 (0.0-0.9) th/mm3 Eos # (Auto) 0.1 (0.0-0.4) th/mm3 Baso # (Auto) 0.1 (0.0-0.2) th/mm3 WBC Differential . Differential Comment Auto diff final Puncture Site Patient Temperature VBG pH (7.360-7.400) VBG pCO2 (44-48) mmHG VBG pO2 (35-40) mmHG VBG HCO3 (22-26) mmol/L VBG O2 Saturation (70-76) % VBG O2 Content (9.0-17.0) Vol % VBG Base Excess (-2-2) mmol/L VBG Carboxyhemoglobin (0-4) % VBG Methemoglobin (0-2) % Hemoglobin (12.0-16.0) G/DL O2 Delivery Device Inspired O2 % Critical Value Sodium 127 L (136-145) meq/L Potassium 4.4 (3.5-5.1) meq/L Chloride 93 L (98-107) meq/L Carbon Dioxide 26.0 (21.0-32.0) meq/L Anion Gap 8 (5-15) meq/L BUN 17 (7-18) mg/dL Creatinine 1.64 H (0.60-1.30) mg/dL Estimated GFR 56 L (>89) mL/min POC Glucose 546 H* (68-110) mg/dl Random Glucose 556 H* (74-106) mg/dL Calcium 8.9 (8.5-10.1) mg/dL Magnesium 2.1 (1.5-2.5) mg/dL Total Bilirubin 0.5 (0.2-1.0) mg/dL AST 29 (15-37) U/L ALT 38 (12-78) U/L Alkaline Phosphatase 182 H (45-117) U/L Troponin I Less than 0.02 L (0.02-0.05) ng/mL Total Protein 7.8 (6.4-8.2) g/dL Albumin 4.1 (3.4-5.0) g/dL Beta-Hydroxybutyric Acd 0.84 H (0.00-0.39) mmol/L Urine Color (Yellw/Straw) Urine Clarity (Clear) Urine pH (5.0-8.5) Ur Specific [place] (1.002-1.035) Urine Protein (Neg-Trace) mg/dL Urine Glucose (UA) (Negative) mg/dL Urine Ketones (Negative) mg/dL Urine Occult Blood (Negative) Urine Nitrate (Negative) Urine Bilirubin (Negative) Urine Urobilinogen (Less than 2) mg/dL Ur Leukocyte Esterase (Negative) Urine RBC (0-3) /hpf Urine WBC (0-5) /hpf Micro UA Comment Ur Microscopic Review Urine Culture Comments 03/09/18 03/09/18 03/09/18 Range/Units 20:05 20:58 22:56 WBC (4.0-11.0) th/mm3 RBC (4.50-5.90) mil/mm3 Hgb (13.0-17.0) gm/dL Hct (39.0-51.0) % MCV (80.0-100.0) fL MCH (27.0-34.0) pg MCHC (32.0-36.0) % RDW (11.6-17.2) % Plt Count (150-450) th/mm3 MPV (7.0-11.0) fL Neut % (Auto) (16.0-70.0) % Lymph % (Auto) (9.0-44.0) % [place] % (Auto) (0.0-8.0) % Eos % (Auto) (0.0-4.0) % Baso % (Auto) (0.0-2.0) % Neut # (Auto) (1.8-7.7) th/mm3 Lymph # (Auto) (1.0-4.8) th/mm3 [place] # (Auto) (0.0-0.9) th/mm3 Eos # (Auto) (0.0-0.4) th/mm3 Baso # (Auto) (0.0-0.2) th/mm3 WBC Differential Differential Comment Puncture Site Iv Patient Temperature 98.6 VBG pH 7.35 L (7.360-7.400) VBG pCO2 45 (44-48) mmHG VBG pO2 28 L* (35-40) mmHG VBG HCO3 24 (22-26) mmol/L VBG O2 Saturation 48 L (70-76) % VBG O2 Content 9.2 (9.0-17.0) Vol % VBG Base Excess -0.6 (-2-2) mmol/L VBG Carboxyhemoglobin 1.1 (0-4) % VBG Methemoglobin 0.6 (0-2) % Hemoglobin 13.8 (12.0-16.0) G/DL O2 Delivery Device Room air Inspired O2 21 % Critical Value Yes Sodium 133 L (136-145) meq/L Potassium 4.4 (3.5-5.1) meq/L Chloride 98 (98-107) meq/L Carbon Dioxide 23.9 (21.0-32.0) meq/L Anion Gap 11 (5-15) meq/L BUN 17 (7-18) mg/dL Creatinine 1.47 H (0.60-1.30) mg/dL Estimated GFR 63 L (>89) mL/min POC Glucose (68-110) mg/dl Random Glucose 500 H* (74-106) mg/dL Calcium 7.8 L D (8.5-10.1) mg/dL Magnesium (1.5-2.5) mg/dL Total Bilirubin (0.2-1.0) mg/dL AST (15-37) U/L ALT (12-78) U/L Alkaline Phosphatase (45-117) U/L Troponin I (0.02-0.05) ng/mL Total Protein (6.4-8.2) g/dL Albumin (3.4-5.0) g/dL Beta-Hydroxybutyric Acd (0.00-0.39) mmol/L Urine Color Straw (Yellw/Straw) Urine Clarity Clear (Clear) Urine pH 5.0 (5.0-8.5) Ur Specific [place] 1.032 (1.002-1.035) Urine Protein Negative (Neg-Trace) mg/dL Urine Glucose (UA) 500 or greater (Negative) mg/dL Urine Ketones 20 (Negative) mg/dL Urine Occult Blood Negative (Negative) Urine Nitrate Negative (Negative) Urine Bilirubin Negative (Negative) Urine Urobilinogen Less than 2 (Less than 2) mg/dL Ur Leukocyte Esterase Negative (Negative) Urine RBC 1 (0-3) /hpf Urine WBC Less than 1 (0-5) /hpf Micro UA Comment Culture not ind Ur Microscopic Review Not Reportable Urine Culture Comments Culture not ind 03/09/18 03/10/18 03/10/18 Range/Units 23:10 03:05 04:46 WBC (4.0-11.0) th/mm3 RBC (4.50-5.90) mil/mm3 Hgb (13.0-17.0) gm/dL Hct (39.0-51.0) % MCV (80.0-100.0) fL MCH (27.0-34.0) pg MCHC (32.0-36.0) % RDW (11.6-17.2) % Plt Count (150-450) th/mm3 MPV (7.0-11.0) fL Neut % (Auto) (16.0-70.0) % Lymph % (Auto) (9.0-44.0) % [place] % (Auto) (0.0-8.0) % Eos % (Auto) (0.0-4.0) % Baso % (Auto) (0.0-2.0) % Neut # (Auto) (1.8-7.7) th/mm3 Lymph # (Auto) (1.0-4.8) th/mm3 [place] # (Auto) (0.0-0.9) th/mm3 Eos # (Auto) (0.0-0.4) th/mm3 Baso # (Auto) (0.0-0.2) th/mm3 WBC Differential Differential Comment Puncture Site Patient Temperature VBG pH (7.360-7.400) VBG pCO2 (44-48) mmHG VBG pO2 (35-40) mmHG VBG HCO3 (22-26) mmol/L VBG O2 Saturation (70-76) % VBG O2 Content (9.0-17.0) Vol % VBG Base Excess (-2-2) mmol/L VBG Carboxyhemoglobin (0-4) % VBG Methemoglobin (0-2) % Hemoglobin (12.0-16.0) G/DL O2 Delivery Device Inspired O2 % Critical Value Sodium (136-145) meq/L Potassium (3.5-5.1) meq/L Chloride (98-107) meq/L Carbon Dioxide (21.0-32.0) meq/L Anion Gap (5-15) meq/L BUN (7-18) mg/dL Creatinine (0.60-1.30) mg/dL Estimated GFR (>89) mL/min POC Glucose 502 H* 359 H 302 H (68-110) mg/dl Random Glucose (74-106) mg/dL Calcium (8.5-10.1) mg/dL Magnesium (1.5-2.5) mg/dL Total Bilirubin (0.2-1.0) mg/dL AST (15-37) U/L ALT (12-78) U/L Alkaline Phosphatase (45-117) U/L Troponin I (0.02-0.05) ng/mL Total Protein (6.4-8.2) g/dL Albumin (3.4-5.0) g/dL Beta-Hydroxybutyric Acd (0.00-0.39) mmol/L Urine Color (Yellw/Straw) Urine Clarity (Clear) Urine pH (5.0-8.5) Ur Specific [place] (1.002-1.035) Urine Protein (Neg-Trace) mg/dL Urine Glucose (UA) (Negative) mg/dL Urine Ketones (Negative) mg/dL Urine Occult Blood (Negative) Urine Nitrate (Negative) Urine Bilirubin (Negative) Urine Urobilinogen (Less than 2) mg/dL Ur Leukocyte Esterase (Negative) Urine RBC (0-3) /hpf Urine WBC (0-5) /hpf Micro UA Comment Ur Microscopic Review Urine Culture Comments 03/10/18 03/10/18 03/10/18 Range/Units 07:59 09:55 09:55 WBC 6.6 (4.0-11.0) th/mm3 RBC 4.45 L (4.50-5.90) mil/mm3 Hgb 12.9 L (13.0-17.0) gm/dL Hct 36.5 L (39.0-51.0) % MCV 82.0 (80.0-100.0) fL MCH 29.1 (27.0-34.0) pg MCHC 35.5 (32.0-36.0) % RDW 14.0 (11.6-17.2) % Plt Count 210 (150-450) th/mm3 MPV 7.6 (7.0-11.0) fL Neut % (Auto) 47.6 (16.0-70.0) % Lymph % (Auto) 41.3 (9.0-44.0) % [place] % (Auto) 8.7 H (0.0-8.0) % Eos % (Auto) 1.5 (0.0-4.0) % Baso % (Auto) 0.9 (0.0-2.0) % Neut # (Auto) 3.1 (1.8-7.7) th/mm3 Lymph # (Auto) 2.7 (1.0-4.8) th/mm3 [place] # (Auto) 0.6 (0.0-0.9) th/mm3 Eos # (Auto) 0.1 (0.0-0.4) th/mm3 Baso # (Auto) 0.1 (0.0-0.2) th/mm3 WBC Differential . Differential Comment Auto diff final Puncture Site Patient Temperature VBG pH (7.360-7.400) VBG pCO2 (44-48) mmHG VBG pO2 (35-40) mmHG VBG HCO3 (22-26) mmol/L VBG O2 Saturation (70-76) % VBG O2 Content (9.0-17.0) Vol % VBG Base Excess (-2-2) mmol/L VBG Carboxyhemoglobin (0-4) % VBG Methemoglobin (0-2) % Hemoglobin (12.0-16.0) G/DL O2 Delivery Device Inspired O2 % Critical Value Sodium 135 L (136-145) meq/L Potassium 4.1 (3.5-5.1) meq/L Chloride 104 (98-107) meq/L Carbon Dioxide 24.9 (21.0-32.0) meq/L Anion Gap 6 (5-15) meq/L BUN 11 (7-18) mg/dL Creatinine 1.20 (0.60-1.30) mg/dL Estimated GFR 80 L (>89) mL/min POC Glucose 268 H (68-110) mg/dl Random Glucose 267 H D (74-106) mg/dL Calcium 8.3 L (8.5-10.1) mg/dL Magnesium (1.5-2.5) mg/dL Total Bilirubin 0.6 (0.2-1.0) mg/dL AST 16 (15-37) U/L ALT 31 (12-78) U/L Alkaline Phosphatase 123 H (45-117) U/L Troponin I (0.02-0.05) ng/mL Total Protein 6.6 D (6.4-8.2) g/dL Albumin 3.4 D (3.4-5.0) g/dL Beta-Hydroxybutyric Acd (0.00-0.39) mmol/L Urine Color (Yellw/Straw) Urine Clarity (Clear) Urine pH (5.0-8.5) Ur Specific [place] (1.002-1.035) Urine Protein (Neg-Trace) mg/dL Urine Glucose (UA) (Negative) mg/dL Urine Ketones (Negative) mg/dL Urine Occult Blood (Negative) Urine Nitrate (Negative) Urine Bilirubin (Negative) Urine Urobilinogen (Less than 2) mg/dL Ur Leukocyte Esterase (Negative) Urine RBC (0-3) /hpf Urine WBC (0-5) /hpf Micro UA Comment Ur Microscopic Review Urine Culture Comments 03/10/18 Range/Units 12:19 WBC (4.0-11.0) th/mm3 RBC (4.50-5.90) mil/mm3 Hgb (13.0-17.0) gm/dL Hct (39.0-51.0) % MCV (80.0-100.0) fL MCH (27.0-34.0) pg MCHC (32.0-36.0) % RDW (11.6-17.2) % Plt Count (150-450) th/mm3 MPV (7.0-11.0) fL Neut % (Auto) (16.0-70.0) % Lymph % (Auto) (9.0-44.0) % [place] % (Auto) (0.0-8.0) % Eos % (Auto) (0.0-4.0) % Baso % (Auto) (0.0-2.0) % Neut # (Auto) (1.8-7.7) th/mm3 Lymph # (Auto) (1.0-4.8) th/mm3 [place] # (Auto) (0.0-0.9) th/mm3 Eos # (Auto) (0.0-0.4) th/mm3 Baso # (Auto) (0.0-0.2) th/mm3 WBC Differential Differential Comment Puncture Site Patient Temperature VBG pH (7.360-7.400) VBG pCO2 (44-48) mmHG VBG pO2 (35-40) mmHG VBG HCO3 (22-26) mmol/L VBG O2 Saturation (70-76) % VBG O2 Content (9.0-17.0) Vol % VBG Base Excess (-2-2) mmol/L VBG Carboxyhemoglobin (0-4) % VBG Methemoglobin (0-2) % Hemoglobin (12.0-16.0) G/DL O2 Delivery Device Inspired O2 % Critical Value Sodium (136-145) meq/L Potassium (3.5-5.1) meq/L Chloride (98-107) meq/L Carbon Dioxide (21.0-32.0) meq/L Anion Gap (5-15) meq/L BUN (7-18) mg/dL Creatinine (0.60-1.30) mg/dL Estimated GFR (>89) mL/min POC Glucose 274 H (68-110) mg/dl Random Glucose (74-106) mg/dL Calcium (8.5-10.1) mg/dL Magnesium (1.5-2.5) mg/dL Total Bilirubin (0.2-1.0) mg/dL AST (15-37) U/L ALT (12-78) U/L Alkaline Phosphatase (45-117) U/L Troponin I (0.02-0.05) ng/mL Total Protein (6.4-8.2) g/dL Albumin (3.4-5.0) g/dL Beta-Hydroxybutyric Acd (0.00-0.39) mmol/L Urine Color (Yellw/Straw) Urine Clarity (Clear) Urine pH (5.0-8.5) Ur Specific [place] (1.002-1.035) Urine Protein (Neg-Trace) mg/dL Urine Glucose (UA) (Negative) mg/dL Urine Ketones (Negative) mg/dL Urine Occult Blood (Negative) Urine Nitrate (Negative) Urine Bilirubin (Negative) Urine Urobilinogen (Less than 2) mg/dL Ur Leukocyte Esterase (Negative) Urine RBC (0-3) /hpf Urine WBC (0-5) /hpf Micro UA Comment Ur Microscopic Review Urine Culture Comments Imaging Data Attestation: I personally reviewed and interpreted this imaging study as follows : Radiologist's impression: Chest X-Ray 03/09/18 19:59 CONCLUSION: No evidence of acute cardiopulmonary disease. Head CT 03/09/18 20:00 CONCLUSION: No acute intracranial abnormality. . ECG Data Attestation: I personally reviewed and interpreted this ECG as follows: Interpretation: EKG shows sinus rhythm with no sign of acute ischemia or arrythmia read by me and attending. Discharge Plan Discharge Disposition Patient Disposition: ED Admit(ED Internal Use Only) Discharge Condition Condition: Stable Discharge Order Discharge Orders: Discharge Order (Routine); Ordered 03/10/18 Ordered By: Tay Doran ED Use Only Admit Order (Routine); Ordered 03/10/18 Ordered By: Eduardo Trammell Discharge Details Diagnosis: Uncontrolled diabetes mellitus with hyperglycemia Physicians Team ED Provider: Kaitlyn Harris ED Midlevel Provider: Eduardo Trammell Primary Care Provider: Primary Care Vannessa Bernstein Attending Provider: Tay Doran Status ED Status: Left Department Discharge Information Discharge Date/Time: 03/10/18 04:00
[2018-03-09 23:53] LABS: Calcium 7.8 mg/dL (8.5-10.1); Carbon Dioxide 23.9 meq/L (21.0-32.0); Potassium 4.4 meq/L (3.5-5.1)
[2018-03-10] MEDS ORDERED: Insulin Detemir Inj 1,000 UNIT/10 ML Vial SQ ONE (00:09)
[2018-03-10] MEDS ORDERED: Dextrose 50% in Water 50 ML Vial IV.PUSH PRN (00:09)
[2018-03-10] MEDS ORDERED: Acetaminophen 325 MG Tablet PO PRN (00:10)
[2018-03-10] MEDS ORDERED: Bisacodyl 10 MG Supp RECTAL PRN (00:10)
[2018-03-10] MEDS: Sod Chloride 0.9% Inj 1,000 ML IV.CONT SCH ×2 (01:12→14:07)
--- NOTE | 2018-03-10 01:31 | P.HPIM ---
History of Present Illness Primary Care Physician: No Primary Care Physician History of Present Illness: This is a 42-year-old male with a PMH of HTN, Hyperlipidemia and DM who presented to ER with complaints of blurry vision, elevated BS, fatigue and increased thirst x1 wk. Previously diagnosed w/ DM in 2016, does not follow w/ PCP, has been obtaining medications directly from the pharmacy, currently on Novolog 70/30 10u which he only uses once daily, check BS irregularly-maybe once a week. Denies fever, chills, nausea, vomiting or diarrhea. No c/o chest pain. On arrival, BP 171/79, HR 91, O2 sat 98% on RA, Afebrile. Na 127. Creatinine 1.64, previously 1.35 on 07/29/2017. Troponin negative. BS 556. S/ p Insulin 10u IV and 10u sq in ER w/ minimal improvement in BS. CT Head with no acute findings. CXR negative. - Diagnosis (1) DM (diabetes mellitus) (2) JANE (acute kidney injury) (3) HTN (hypertension) Review of Systems PAST FAMILY HISTORY: Reviewed. Positive for DM. All other systems reviewed negative except as stated in HPI PMFSH - History History Provided By: Patient - Medical History Medical History: Medical History (Last Reviewed 03/09/18 @ 21:47 by JONATHAN Yin) Diabetes Hyperlipidemia Hypertension - Surgical History Surgical History: Surgical History (Last Reviewed 03/09/18 @ 21:47 by JONATHAN Yin) History of orthopedic surgery History of surgery on arm - Tobacco History Second Hand Smoke Exposure: Yes Tobacco Use In Past 30 Days: Yes Smoking Status: Light tobacco smoker Tobacco Type: Cigars - Alcohol History How Often Do You Have a Drink Containing Alcohol: Never - Substance Use History Substance History: No History of Abuse - Travel History Recent Travel in the [place] Within the Last 8 Weeks: No Recent Travel Out of the Country Within the Last 8 Weeks: No - Immunization History Tetanus Immunization: >5 Years Medications and Allergies Active Medications: Active Medications Acetaminophen (Tylenol) 650 mg PO Q4H PRN PRN Reason: Temp > 100.4 Al Hydroxide/Mg Hydroxide (Milk Of Magnesia Liq) 30 ml PO Q12H PRN PRN Reason: Mild Constipation Atorvastatin Calcium (Lipitor) 80 mg PO DAILY REZA Bisacodyl (Dulcolax Supp) 10 mg RECTAL DAILY PRN PRN Reason: SEVERE CONSITIPATION Dextrose (D50w Vial) 50 ml IV.PUSH UNSCH PRN PRN Reason: PER HYPOGLYCEMIA PROTOCOL Glucagon (Glucagon Inj) 1 mg OTHER PRN PRN PRN Reason: for Hypoglycemia Protocol Sodium Chloride (Ns Inj) 1,000 mls @ 100 mls/hr IV.CONT .Q10H REZA Last Admin: 03/10/18 01:12 Dose: 100 mls/hr Insulin Aspart (Novolog Insulin Correctional Sugar Inj) 0 unit SQ ACHS REZA; Protocol Insulin Detemir (Levemir Inj) 10 unit SQ BID REZA Lactulose (Lactulose Liq) 30 ml PO DAILY PRN PRN Reason: SEVERE CONSITIPATION Ondansetron HCl (Zofran Inj) 4 mg IV.PUSH Q6H PRN PRN Reason: NAUSEA OR VOMITING Senna/Docusate Sodium (Amairani-Colace) 1 tab PO BID [facility] Sennosides (Senokot) 17.2 mg PO Q12H PRN PRN Reason: Moderate Constipation Sodium Chloride (Ns Flush) 2 ml IV.FLUSH BID [facility] Sodium Chloride (Ns Flush) 2 ml IV.FLUSH PRN PRN PRN Reason: FLUSH AFTER USING IV ACCESS Allergies Allergy/AdvReac Type Severity Reaction Status Date / Time No Known Allergies Allergy Verified 03/09/18 17:19 Home Medications Medication Instructions Recorded Confirmed Type atorvastatin 80 mg PO DAILY 03/09/18 03/09/18 History insulin asp prt-insulin aspart 10 unit SUBCUT BID 03/09/18 03/09/18 History [Novolog Mix 70-30 U-100 Insuln] lisinopril 20 mg PO DAILY 03/09/18 03/09/18 History Exam Vital signs: Vital Signs 03/09/18 17:16 03/09/18 19:53 Temperature 98.9 F Pulse Rate 91 H 96 H Respiratory Rate 20 18 Blood Pressure 171/79 H 122/92 H Pulse Oximetry 98 99 Intake & Output 03/09/18 03/09/18 03/10/18 06:59 18:59 06:59 Intake Total 1999 Balance 1999 Weight 122.47 kg Intake: IV 1999 NS Inj 1,000 ML @ 1000 mls/hr 1999 IV.SIG BOLUS [facility] Rx#:[id number] Narrative: PE: GENERAL: Pleasant young black male in no acute distress. SKIN: Focused skin assessment warm and dry. HEENT: PERRLA, EOMI. No scleral icterus or conjunctival pallor. No lid lag or facial droop. CARDIOVASCULAR: Regular rate and rhythm. No obvious murmurs to auscultation. No chest tenderness to palpation. RESPIRATORY: No obvious rhonchi or wheezing. Clear to auscultation. Breath sounds equal bilaterally. GASTROINTESTINAL: Abdomen soft, non-tender, nondistended. BS normal. MUSCULOSKELETAL: Extremities without clubbing, cyanosis, or edema. No obvious deformities. NEUROLOGICAL: Awake, alert and oriented x4. No focal neurologic deficits. Moving both upper and lower extremities spontaneously. PSYCHIATRIC: Appropriate mood and affect. Insight and judgment normal. Results - Labs CBC & Chem 7: 03/09/18 20:05 03/09/18 22:56 Labs: Short CBC 03/09/18 Range/Units 20:05 WBC 9.6 (4.0-11.0) th/mm3 Hgb 14.0 (13.0-17.0) gm/dL Hct 42.7 (39.0-51.0) % Plt Count 258 (150-450) th/mm3 BMP 03/09/18 03/09/18 20:05 22:56 Sodium 127 L 133 L Potassium 4.4 4.4 Chloride 93 L 98 Carbon Dioxide 26.0 23.9 BUN 17 17 Creatinine 1.64 H 1.47 H Calcium 8.9 7.8 L D Cardiac Enzymes 03/09/18 Range/Units 20:05 Troponin I Less than 0.02 L (0.02-0.05) ng/mL Liver Function 03/09/18 Range/Units 20:05 Total Bilirubin 0.5 (0.2-1.0) mg/dL AST 29 (15-37) U/L ALT 38 (12-78) U/L Alkaline Phosphatase 182 H (45-117) U/L Albumin 4.1 (3.4-5.0) g/dL Urine 03/09/18 Range/Units 20:05 Urine Color Straw (Yellw/Straw) Urine Clarity Clear (Clear) Urine pH 5.0 (5.0-8.5) Ur Specific [place] 1.032 (1.002-1.035) Urine Protein Negative (Neg-Trace) mg/dL Urine Glucose (UA) 500 or greater (Negative) mg/dL - Imaging Impressions Chest X-Ray 03/09/18 19:59 CONCLUSION: No evidence of acute cardiopulmonary disease. Head CT 03/09/18 20:00 CONCLUSION: No acute intracranial abnormality. . Caprini VTE Risk Assessment Caprini VTE Risk Assessment: No/Low Risk (score <= 1) Caprini Risk Assessment Model: Point Value = 1 Point Value = 2 Point Value = 3 Point Value = 5 Age 41-60 Minor surgery BMI > 25 kg/m2 Swollen legs Varicose veins or History of unexplained or recurrent spontaneous Oral contraceptives or hormone replacement Sepsis (< 1 month) Serious lung disease, including pneumonia (< 1 month) Abnormal pulmonary function Acute myocardial infarction Congestive heart failure (< 1 month) History of inflammatory bowel disease Medical patient at bed rest Age 61-74 Arthroscopic surgery Major open surgery (> 45 min) Laparoscopic surgery (> 45 min) Malignancy Confined to bed (> 72 hours) Immobilizing plaster cast Central venous access Age >= 75 History of VTE Family history of VTE Factor V Leiden Prothrombin [id number] Lupus anticoagulant Anticardiolipin antibodies Elevated serum homocysteine Heparin-induced thrombocytopenia Other congenital or acquired thrombophilia Stroke (< 1 month) Elective arthroplasty Hip, pelvis, or leg fracture Acute spinal cord injury (< 1 month) Prophylaxis Regimen: Total Risk Factor Score Risk Level Prophylaxis Regimen 0-1 Low Early ambulation 2 Moderate Order ONE of the following: *Sequential Compression Device (SCD) *Heparin 5000 units SQ BID 3-4 Higher Order ONE of the following medications: *Heparin 5000 units SQ TID *Enoxaparin/Lovenox 40 mg SQ daily (WT < 150 kg, CrCl > 30 mL/min) *Enoxaparin/Lovenox 30 mg SQ daily (WT < 150 kg, CrCl > 10-29 mL/min) *Enoxaparin/Lovenox 30 mg SQ BID (WT < 150 kg, CrCl > 30 mL/min) AND/OR *Sequential Compression Device (SCD) 5 or more Highest Order ONE of the following medications: *Heparin 5000 units SQ TID (Preferred with Epidurals) *Enoxaparin/Lovenox 40 mg SQ daily (WT < 150 kg, CrCl > 30 mL/min) *Enoxaparin/Lovenox 30 mg SQ daily (WT < 150 kg, CrCl > 10-29 mL/min) *Enoxaparin/Lovenox 30 mg SQ BID (WT < 150 kg, CrCl > 30 mL/min) AND *Sequential Compression Device (SCD) Assessment and Plan - Assessment (1) DM (diabetes mellitus) Code(s): E11.9 - Type 2 diabetes mellitus without complications Status: Acute (2) JANE (acute kidney injury) Code(s): N17.9 - Acute kidney failure, unspecified Status: Acute (3) HTN (hypertension) Code(s): I10 - Essential (primary) hypertension Status: Acute - Plan A/P: 1. DM: Uncontrolled, poor follow up/education regarding medications and BS control, BS >500 w/ +blurry vision, ophthalmologic exam attempted in ER but unsuccessful, symptoms likely due to significantly elevated BS, now slightly improved. CT Head w/ no acute findings. Check Hgb A1c, start Levemir 10u, Sliding scale w/ Accu-Checks, Regulator Tester. Urged pt to follow up w/ PCP, needs dilated eye exam, regular Podiatry follow up and strict glucose control to avoid irreversible end organ damage. 2. HTN: Uncontrolled. BP 170's, monitor BP, antihypertensives as needed. 3. JANE: Creatinine 1.64, previously 1.36 on 07/29/17, IVF for hydration, monitor I/O, repeat labs in am. 4. DVT Prophylaxis: SCD/Teds 5. Social work for d/c planning as needed. 6. Case discussed w/ ER physician at length, labs/records/imaging reviewed by me
[2018-03-10] MEDS ORDERED: Insulin Detemir Inj 1,000 UNIT/10 ML Vial SQ SCH (09:00)
[2018-03-10] MEDS ORDERED: Senna/Docusate Sodium 8.6/50 MG Tablet PO SCH (09:00)
[2018-03-10] MEDS: Insulin NovoLOG Aspart Correctional Sugar Inj SQ SCH ×2 (09:45→14:08)
[2018-03-10 10:09] LABS: Baso # (Auto) 0.1 th/mm3 (0.0-0.2); Baso % (Auto) 0.9 % (0.0-2.0); Eos # (Auto) 0.1 th/mm3 (0.0-0.4); Eos % (Auto) 1.5 % (0.0-4.0); Hematocrit 36.5 % (39.0-51.0); Hemoglobin 12.9 gm/dL (13.0-17.0); Lymph # (Auto) 2.7 th/mm3 (1.0-4.8); Lymph % (Auto) 41.3 % (9.0-44.0); Mean Corpuscular HGB Conc 35.5 % (32.0-36.0); Mean Corpuscular Hemoglobin 29.1 pg (27.0-34.0); Mean Platelet Volume 7.6 fL (7.0-11.0); Mono # (Auto) 0.6 th/mm3 (0.0-0.9); Mono % (Auto) 8.7 % (0.0-8.0); Neut # (Auto) 3.1 th/mm3 (1.8-7.7); Neut % (Auto) 47.6 % (16.0-70.0); Platelet Count 210 th/mm3 (150-450); Red Blood Count 4.45 mil/mm3 (4.50-5.90); White Blood Count 6.6 th/mm3 (4.0-11.0)
[2018-03-10 10:39] LABS: Albumin 3.4 g/dL (3.4-5.0); Anion Gap 6 meq/L (5-15); Blood Urea Nitrogen 11 mg/dL (7-18); Calcium 8.3 mg/dL (8.5-10.1); Carbon Dioxide 24.9 meq/L (21.0-32.0); Chloride 104 meq/L (98-107); Glomerular Filtration Rate 80 mL/min (>89); Glucose,Random 267 mg/dL (74-106); Potassium 4.1 meq/L (3.5-5.1); Sodium 135 meq/L (136-145)
[2018-03-10 10:40] LABS: Alanine Aminotransferase 31 U/L (12-78); Aspartate Aminotransferase 16 U/L (15-37)
[2018-03-10 10:42] LABS: Alkaline Phosphatase 123 U/L (45-117); Total Protein 6.6 g/dL (6.4-8.2)
--- NOTE | 2018-03-10 16:15 | P.PN ---
Subjective Interval history: Nursing denies any acute changes overnight. Patient self denies any nausea vomiting. Says he feels good, says his vision is blurry when he looks at farsighted objects, says this is not usual for him. Says this happened to him about a year and a half ago when he presented with hyperglycemia, and his blurry vision went away within a few days. Says he does not see a PCP due to lack of insurance, has been getting NovoLog refilled since his prescription from the hospital. Has not taken any oral hypoglycemics or metformin. Physical Exam Vital signs: Vital Signs 03/09/18 17:16 03/09/18 19:53 03/09/18 21:00 Temperature 98.9 F Pulse Rate 91 H 96 H 80 Respiratory Rate 20 18 18 Blood Pressure 171/79 H 122/92 H 120/78 Pulse Oximetry 98 99 97 03/09/18 23:00 03/10/18 01:16 03/10/18 04:00 Temperature 98.3 F Pulse Rate 84 69 75 Respiratory Rate 16 18 17 Blood Pressure 117/77 122/73 120/74 Pulse Oximetry 97 97 96 03/10/18 08:00 03/10/18 11:58 03/10/18 16:00 Temperature 98.3 F 98.7 F 98.4 F Pulse Rate 86 85 94 H Respiratory Rate 16 18 16 Blood Pressure 122/79 129/85 115/87 Pulse Oximetry 98 97 95 Intake & Output 03/09/18 03/10/18 03/10/18 18:59 06:59 18:59 Intake Total 1999 1200 / 1200 Balance 1999 1200 / 1200 Weight 122.47 kg 122.47 kg Intake: IV 1999 1000 / 1000 NS Inj 1,000 ML @ 100 mls/hr IV 1000 / 1000 .CONT .Q10H [facility] Rx#:[id number] NS Inj 1,000 ML @ 1000 mls/hr 1999 IV.SIG BOLUS [facility] Rx#:[id number] Oral 200 / 200 Other: # Voids 1 Weight On Admission 122.47 kg Narrative: Patient is able to discriminate clearly between 3, 2, and 1 finger at a distance of about 3-4 feet with each eye Clear lungs bilaterally unlabored breathing Heart is regular rhythm, no murmurs Sitting up in bed, eating Results - Labs CBC & Chem 7: 03/10/18 09:55 03/10/18 09:55 Laboratory Results - last 24 hr 03/09/18 03/09/18 03/09/18 19:54 20:05 20:05 WBC 9.6 RBC 5.09 Hgb 14.0 Hct 42.7 MCV 84.0 MCH 27.5 MCHC 32.7 RDW 13.7 Plt Count 258 MPV 8.5 Neut % (Auto) 51.2 Lymph % (Auto) 39.9 [place] % (Auto) 6.6 Eos % (Auto) 1.5 Baso % (Auto) 0.8 Neut # (Auto) 4.9 Lymph # (Auto) 3.8 [place] # (Auto) 0.6 Eos # (Auto) 0.1 Baso # (Auto) 0.1 WBC Differential . Differential Comment Auto diff final Puncture Site Patient Temperature VBG pH VBG pCO2 VBG pO2 VBG HCO3 VBG O2 Saturation VBG O2 Content VBG Base Excess VBG Carboxyhemoglobin VBG Methemoglobin Hemoglobin O2 Delivery Device Inspired O2 Critical Value Sodium 127 L Potassium 4.4 Chloride 93 L Carbon Dioxide 26.0 Anion Gap 8 BUN 17 Creatinine 1.64 H Estimated GFR 56 L POC Glucose 546 H* Random Glucose 556 H* Calcium 8.9 Magnesium 2.1 Total Bilirubin 0.5 AST 29 ALT 38 Alkaline Phosphatase 182 H Troponin I Less than 0.02 L Total Protein 7.8 Albumin 4.1 Beta-Hydroxybutyric Acd 0.84 H Urine Color Urine Clarity Urine pH Ur Specific [place] Urine Protein Urine Glucose (UA) Urine Ketones Urine Occult Blood Urine Nitrate Urine Bilirubin Urine Urobilinogen Ur Leukocyte Esterase Urine RBC Urine WBC Micro UA Comment Ur Microscopic Review Urine Culture Comments 03/09/18 03/09/18 03/09/18 20:05 20:58 22:56 WBC RBC Hgb Hct MCV MCH MCHC RDW Plt Count MPV Neut % (Auto) Lymph % (Auto) [place] % (Auto) Eos % (Auto) Baso % (Auto) Neut # (Auto) Lymph # (Auto) [place] # (Auto) Eos # (Auto) Baso # (Auto) WBC Differential Differential Comment Puncture Site Iv Patient Temperature 98.6 VBG pH 7.35 L VBG pCO2 45 VBG pO2 28 L* VBG HCO3 24 VBG O2 Saturation 48 L VBG O2 Content 9.2 VBG Base Excess -0.6 VBG Carboxyhemoglobin 1.1 VBG Methemoglobin 0.6 Hemoglobin 13.8 O2 Delivery Device Room air Inspired O2 21 Critical Value Yes Sodium 133 L Potassium 4.4 Chloride 98 Carbon Dioxide 23.9 Anion Gap 11 BUN 17 Creatinine 1.47 H Estimated GFR 63 L POC Glucose Random Glucose 500 H* Calcium 7.8 L D Magnesium Total Bilirubin AST ALT Alkaline Phosphatase Troponin I Total Protein Albumin Beta-Hydroxybutyric Acd Urine Color Straw Urine Clarity Clear Urine pH 5.0 Ur Specific [place] 1.032 Urine Protein Negative Urine Glucose (UA) 500 or greater Urine Ketones 20 Urine Occult Blood Negative Urine Nitrate Negative Urine Bilirubin Negative Urine Urobilinogen Less than 2 Ur Leukocyte Esterase Negative Urine RBC 1 Urine WBC Less than 1 Micro UA Comment Culture not ind Ur Microscopic Review Not Reportable Urine Culture Comments Culture not ind 03/09/18 03/10/18 03/10/18 23:10 03:05 04:46 WBC RBC Hgb Hct MCV MCH MCHC RDW Plt Count MPV Neut % (Auto) Lymph % (Auto) [place] % (Auto) Eos % (Auto) Baso % (Auto) Neut # (Auto) Lymph # (Auto) [place] # (Auto) Eos # (Auto) Baso # (Auto) WBC Differential Differential Comment Puncture Site Patient Temperature VBG pH VBG pCO2 VBG pO2 VBG HCO3 VBG O2 Saturation VBG O2 Content VBG Base Excess VBG Carboxyhemoglobin VBG Methemoglobin Hemoglobin O2 Delivery Device Inspired O2 Critical Value Sodium Potassium Chloride Carbon Dioxide Anion Gap BUN Creatinine Estimated GFR POC Glucose 502 H* 359 H 302 H Random Glucose Calcium Magnesium Total Bilirubin AST ALT Alkaline Phosphatase Troponin I Total Protein Albumin Beta-Hydroxybutyric Acd Urine Color Urine Clarity Urine pH Ur Specific [place] Urine Protein Urine Glucose (UA) Urine Ketones Urine Occult Blood Urine Nitrate Urine Bilirubin Urine Urobilinogen Ur Leukocyte Esterase Urine RBC Urine WBC Micro UA Comment Ur Microscopic Review Urine Culture Comments 03/10/18 03/10/18 03/10/18 07:59 09:55 09:55 WBC 6.6 RBC 4.45 L Hgb 12.9 L Hct 36.5 L MCV 82.0 MCH 29.1 MCHC 35.5 RDW 14.0 Plt Count 210 MPV 7.6 Neut % (Auto) 47.6 Lymph % (Auto) 41.3 [place] % (Auto) 8.7 H Eos % (Auto) 1.5 Baso % (Auto) 0.9 Neut # (Auto) 3.1 Lymph # (Auto) 2.7 [place] # (Auto) 0.6 Eos # (Auto) 0.1 Baso # (Auto) 0.1 WBC Differential . Differential Comment Auto diff final Puncture Site Patient Temperature VBG pH VBG pCO2 VBG pO2 VBG HCO3 VBG O2 Saturation VBG O2 Content VBG Base Excess VBG Carboxyhemoglobin VBG Methemoglobin Hemoglobin O2 Delivery Device Inspired O2 Critical Value Sodium 135 L Potassium 4.1 Chloride 104 Carbon Dioxide 24.9 Anion Gap 6 BUN 11 Creatinine 1.20 Estimated GFR 80 L POC Glucose 268 H Random Glucose 267 H D Calcium 8.3 L Magnesium Total Bilirubin 0.6 AST 16 ALT 31 Alkaline Phosphatase 123 H Troponin I Total Protein 6.6 D Albumin 3.4 D Beta-Hydroxybutyric Acd Urine Color Urine Clarity Urine pH Ur Specific [place] Urine Protein Urine Glucose (UA) Urine Ketones Urine Occult Blood Urine Nitrate Urine Bilirubin Urine Urobilinogen Ur Leukocyte Esterase Urine RBC Urine WBC Micro UA Comment Ur Microscopic Review Urine Culture Comments 03/10/18 12:19 WBC RBC Hgb Hct MCV MCH MCHC RDW Plt Count MPV Neut % (Auto) Lymph % (Auto) [place] % (Auto) Eos % (Auto) Baso % (Auto) Neut # (Auto) Lymph # (Auto) [place] # (Auto) Eos # (Auto) Baso # (Auto) WBC Differential Differential Comment Puncture Site Patient Temperature VBG pH VBG pCO2 VBG pO2 VBG HCO3 VBG O2 Saturation VBG O2 Content VBG Base Excess VBG Carboxyhemoglobin VBG Methemoglobin Hemoglobin O2 Delivery Device Inspired O2 Critical Value Sodium Potassium Chloride Carbon Dioxide Anion Gap BUN Creatinine Estimated GFR POC Glucose 274 H Random Glucose Calcium Magnesium Total Bilirubin AST ALT Alkaline Phosphatase Troponin I Total Protein Albumin Beta-Hydroxybutyric Acd Urine Color Urine Clarity Urine pH Ur Specific [place] Urine Protein Urine Glucose (UA) Urine Ketones Urine Occult Blood Urine Nitrate Urine Bilirubin Urine Urobilinogen Ur Leukocyte Esterase Urine RBC Urine WBC Micro UA Comment Ur Microscopic Review Urine Culture Comments - Imaging Impressions Chest X-Ray 03/09/18 19:59 CONCLUSION: No evidence of acute cardiopulmonary disease. Head CT 03/09/18 20:00 CONCLUSION: No acute intracranial abnormality. . Assessment and Plan - Assessment (1) DM (diabetes mellitus) Code(s): E11.9 - Type 2 diabetes mellitus without complications Status: Acute (2) JANE (acute kidney injury) Code(s): N17.9 - Acute kidney failure, unspecified Status: Acute (3) HTN (hypertension) Code(s): I10 - Essential (primary) hypertension Status: Acute - Plan 42-year-old black male admitted for acute kidney injury with uncontrolled hyperglycemia and mild blurry vision Acute kidney injury Likely due to uncontrolled hyperglycemia and glucosuria, improved with IV fluids Hyperglycemia Improving with insulin, no acidosis We will start the patient on metformin and increase his NovoLog dosing to twice a day, patient instructed to follow-up with PCP outpatient for closer diabetes monitoring and control Blurry vision Improving since admission, discussed case with ophthalmology, follow-up closely with them outpatient, was advised no driving or operating any heavy machinery patient until seen by ophthalmology
--- NOTE | 2018-03-10 17:44 | ECG ---
Date Performed: 03/09/2018 Time Performed: 20:38:59 PTAGE: 42 years EKG: Sinus rhythm PATTERN CONSISTENT WITH PULMONARY DISEASE LEFT ANTERIOR FASCICULAR BLOCK Since the previous tracing, no significant change noted ABNORMAL ECG PREVIOUS TRACING : 07/27/2017 21.31 DOCTOR: Manuel Aquino Interpretating Date/Time 03/10/2018 17:31:22
[2018-03-11 11:44] LABS: Hemoglobin A1c 14.6 % (4.3-6.0)
== END 2018-03-10 17:08 | disposition home or self-care (01) ==
LOC: NEPE 17:10 → NEDA 17:10 → NEPGCP 03-10 04:21
PROVIDERS: ADMIT Hospitalist; ATTEND Hospitalist